=== PATIENT | female | born 1945 | race American Indian/Alaskan Native ===

== ENCOUNTER 2016-03-26 13:07 | Emergency (ER) | payer MEDICARE ==
--- NOTE | 2016-03-26 14:46 | Emergency Department Report ---
Chief Complaint: Abdominal Pain Stated Complaint: MUSCLE SPASMS/NECK Time Seen by Provider: 03/26/16 14:39 - HPI History of Present Illness: 70-year-old female comes in for complaint of left-sided pain left side flank pain as well as right neck muscle spasms. Patient has a past medical history of hypertension and GERD. Patient denies any vomiting denies dysuria denies hematuria. - Exam Vital Signs: Vital Signs 03/26/16 13:57 Temperature 99.0 F Pulse Rate 99 H Respiratory 16 Rate Blood Pressure 146/96 O2 Sat by Pulse 98 Oximetry Physical Exam: Patient is alert and oriented. Her symptoms aren't as the right side of her neck as well as tenderness to palpate any CVA tenderness on the left flank. MSE screening note: Focused history and physical exam performed. Due to findings the following was ordered: Patient is been evaluated by provider in MSE. We will order a CBC CMP and a UA. Patient be evaluated in the main ER by the physicians. ED Disposition for [facility] Condition: Stable Instructions: Abdominal Pain (ED)
[2016-03-26 15:31] LABS: Hemoglobin 13.8 gm/dl (10.1-14.3); Mean Corpuscular HGB Conc 34 % (30-34); Mean Corpuscular Hemoglobin 29 pg (28-32); Mean Corpuscular Volume 88 fl (79-97); Platelet Count 230 K/mm3 (140-440); Red Blood Count 4.68 M/mm3 (3.65-5.03); Red Cell Distribution Width 13.3 % (13.2-15.2); White Blood Count 9.1 K/mm3 (4.5-11.0)
[2016-03-26 15:57] LABS: Alanine Aminotransferase 11 units/L (7-56); Albumin 3.9 g/dL (3.9-5); Albumin/Globulin Ratio 1.1 %; Alkaline Phosphatase 136 units/L (35-129); Bilirubin,Total 0.4 mg/dL (0.1-1.2); Blood Urea Nitrogen 7 mg/dL (7-17); Calcium 9.9 mg/dL (8.4-10.2); Carbon Dioxide 28 mmol/L (22-30); Chloride 94.4 mmol/L (98-107); Glucose 91 mg/dL (65-100); Potassium 3.6 mmol/L (3.6-5.0); Sodium 137 mmol/L (137-145); Total Protein 7.6 g/dL (6.3-8.2)
[2016-03-26 16:03] LABS: Anion Gap 18 mmol/L
[2016-03-26 16:15] LABS: Bilirubin,Urine NEG (Negative); Blood,Urine NEG (Negative); Ketones,Urine TR mg/dL (Negative); Leukocyte Esterase,Urine NEG (Negative); Nitrite,Urine NEG (Negative); Urobilinogen,Urine < 2.0 mg/dL (<2.0)
--- NOTE | 2016-03-26 23:07 | Cat Scan Report ---
FINAL REPORT PROCEDURE: CT HEAD/BRAIN WO CON TECHNIQUE: Computerized tomography of the head was performed without contrast material. HISTORY: neck pain/headpain COMPARISON: No prior studies are available for comparison. FINDINGS: Skull and scalp: Normal. Paranasal sinuses: Normal. Ventricles and subarachnoid spaces: There is mild central and cortical atrophy. There is no hydrocephalus or asymmetry.. Cerebrum: No evidence of hemorrhage, acute infarction or mass. There is chronic deep white matter ischemic gliosis. Cerebellum and brainstem: No evidence of hemorrhage, acute infarction or mass. Vasculature: There are calcified plaque in the cavernous portions of the internal carotid arteries.. Comments: None. IMPRESSION: There is mild central and cortical atrophy. There is no hydrocephalus or asymmetry.. There is no evidence of hemorrhage, acute infarction or mass. There is chronic deep white matter ischemic gliosis.
[2016-03-26] MEDS ORDERED: NACL 0.9% 1000 ML 1,000 ML IV ONE (23:41)
[2016-03-26] MEDS ORDERED: VALIUM IV ONE (23:41)
--- NOTE | 2016-03-27 00:05 | Emergency Department Report ---
HPI - General Chief Complaint: Abdominal Pain Time Seen by Provider: 03/26/16 14:39 - HPI HPI: This is a 70-year-old Afro[place] female who presents to the emergency Department, after driving herself and from home, with 2 main complaints. For the past 4 days the patient has had a pain to the right side of the shoulder, neck and into the back of her head. It feels like a muscle spasm to her and worsens with certain movements of her head and neck. The other complaint is a pain to the left lower lateral back that radiates down into her buttock. This also worsens with certain movements of her body. She denies any problems with bowel or bladder, numbness or paresthesias or any neurological deficits. Patient has tried some Tylenol for her symptoms without any relief. She denies any dysuria, hematuria, vaginal discharge or bleeding. She has a past nuchal history of hypertension and GERD. She does not currently have a primary care doctor. No recent travel or sick contacts at home. ED Past Medical Hx - Past Medical History Hx Hypertension: Yes Hx Psychiatric Treatment: Yes (depression) - Surgical History Additional Surgical History: hysterectomy - Social History Smoking Status: Current Every Day Smoker Substance Use Type: None - Medications Home Medications: Home Medications Medication Instructions Recorded Confirmed Last Taken Type Ketorolac [Toradol] 10 mg PO Q6H PRN #20 tablet 02/01/16 Unknown Rx Diazepam Tab [Valium] 2 mg PO TID PRN #12 tablet 03/27/16 Unknown Rx predniSONE [Deltasone] 20 mg PO QDAY #5 tab 03/27/16 Unknown Rx ED Review of Systems ROS: Stated complaint: MUSCLE SPASMS/NECK Other details as noted in HPI Comment: All other systems reviewed and negative Constitutional: denies: chills, fever Eyes: denies: eye pain, eye discharge, vision change ENT: denies: ear pain, throat pain Respiratory: denies: cough, shortness of breath, wheezing Cardiovascular: denies: chest pain, palpitations Gastrointestinal: denies: abdominal pain, nausea, diarrhea Genitourinary: denies: urgency, dysuria, discharge Musculoskeletal: back pain, myalgia Skin: denies: rash, lesions Neurological: headache. denies: weakness, numbness, paresthesias Physical Exam - Physical Exam Vital Signs: Vital Signs 03/26/16 03/26/16 13:57 21:21 Temperature 99.0 F 98.7 F Pulse Rate 99 H 103 H Respiratory 16 20 Rate Blood Pressure 146/96 Blood Pressure 159/92 [Left] O2 Sat by Pulse 98 100 Oximetry Physical Exam: GENERAL: The patient is well-developed well-nourished. HEENT: Normocephalic. Atraumatic. Extraocular motions are intact. Patient has moist mucous membranes. Pupils equal reactive to light bilaterally. NECK: Supple. No midline tenderness to palpation or deformity. Patient does have reducible tenderness to palpation to the right paraspinal region that runs down along the superior and posterior shoulder consistent with the trapezius muscle. Patient is able to slowly turn her head in all directions but movement does seem to exacerbate her discomfort. CHEST/LUNGS: Clear to auscultation. There is no respiratory distress noted. HEART/CARDIOVASCULAR: Regular. There is no tachycardia. There is no gallop rub or murmur. ABDOMEN: Abdomen is soft, nontender. Patient has normal bowel sounds. There is no abdominal distention. SKIN: There is no rash. There is no edema. There is no diaphoresis. NEURO: The patient is awake, alert, and oriented. The patient is cooperative. The patient has no focal neurologic deficits. The patient has normal speech and gait. Cranial nerves II through XII grossly intact. MUSCULOSKELETAL: There is no tenderness or deformity. There is no limitation range of motion. There is no evidence of acute injury. Muscle strength 5 out of 5 upper and lower extremities including EHL bilaterally. BACK: No midline thoracic or lumbar tenderness to palpation or deformity. She has some reproducible tenderness to palpation to the left lumbar paraspinal region. Positive left lower extremity straight leg raise test. ED Course Vital Signs 03/26/16 03/26/16 13:57 21:21 Temperature 99.0 F 98.7 F Pulse Rate 99 H 103 H Respiratory 16 20 Rate Blood Pressure 146/96 Blood Pressure 159/92 [Left] O2 Sat by Pulse 98 100 Oximetry ED Medical Decision Making - Lab Data Result diagrams: 03/26/16 15:22 03/26/16 15:22 - Radiology Data Radiology results: report reviewed CT of the head does not show any acute process including no evidence of hemorrhage, infarction or mass. Chronic deep white matter ischemic gliosis. Mild central and cortical atrophy. No hydrocephalus or asymmetry. - Medical Decision Making This is a 70-year-old female who presents to the emergency department with a four-day history of some right-sided neck and shoulder discomfort, like a muscle spasm or crick in the neck. Over the same time she also has some pain to the left lumbar region going down into the buttock. Patient had a CT of the head through triage because she complained that the neck and shoulder pain was going into the head but it was negative for any acute process including bleed, shift, mass. Patient's pain to the neck and shoulders reproducible to palpation , as was the left lower back pain. All of which appeared to be musculoskeletal in nature. Patient did not have any focal, motor or sensory deficits. She was seen with full muscle strength all 4 extremities. No focal, motor or sensory deficits. Patient was seen ambulatory in the emergency department and appeared stable and doing so. She was given some IV fluid, antinausea inflammatory steroids and a muscle relaxer. Patient was feeling better when she was asking for discharge home and she has to attend to her son who has multiple sclerosis. Patient got a ride secondary to the fact that the Valium is sedating. Patient was given a small amount of muscle relaxers and steroids to be used at home. We discussed a heating pad or hot bath. She will follow up with primary care and will return to the ER with any worsening of her symptoms or any acute distress. Vital signs stable throughout her ED course. - Differential Diagnosis muscle spasm, tension headache, brain bleed, muscle strain Critical Care Time: No Critical care attestation.: If time is entered above; I have spent that time in minutes in the direct care of this critically ill patient, excluding procedure time. ED Disposition Clinical Impression: Neck pain, Trapezius muscle spasm Sciatica Qualifiers: Laterality: right Qualified Code(s): M54.31 - Sciatica, right side Back pain Qualifiers: Back pain location: low back pain Chronicity: acute Back pain laterality: left Sciatica presence: with sciatica Sciatica laterality: sciatica of right side Qualified Code(s): M54.41 - Lumbago with sciatica, right side Hypertension Qualifiers: Hypertension type: essential hypertension Qualified Code(s): I10 - Essential ( primary) hypertension Disposition: DISCHARGED TO HOME OR SELFCARE Is pt being admited?: No Does the pt Need Aspirin: No Condition: Stable Instructions: Back Pain (ED), Sciatica (ED), Muscle Spasm (ED), Hypertension ( ED) Additional Instructions: Please follow up with one of the primary care doctor's that you have been given a referral to. Return to the emergency department with any worsening of your symptoms or any acute distress, especially a few develop any vision change, slurred speech, chest pain. You can try a heating pad or a hot bath to try and loosen up the muscles. You've been prescribed a medication that is sedating. Therefore this medication cannot be mixed with alcohol, or taken prior to driving, working, or being responsible for children. Prescriptions: predniSONE [Deltasone] 20 mg PO QDAY #5 tab Diazepam Tab [Valium] 2 mg PO TID PRN #12 tablet PRN Reason: Muscle Spasm Referrals: PRIMARY CARE, [Primary Care Provider] - 3-5 Days ALIREZA DEL VALLE MD [Staff Physician] - 3-5 Days MARTHA PELLETIER MD [Staff Physician] - 3-5 Days JOY VENTURA MD [Staff Physician] - 3-5 Days Time of Disposition: 01:10
--- NOTE | 2016-03-27 00:26 | Admit Criteria Form ---
Admission Criteria Documentation: ABDOMINAL PAIN: OBSERVATION CARE USE THIS FORM ONLY WHEN INPATIENT ADMISSION CRITERIA ARE NOT MET. (Place X for any and all applicable criteria): Placement for observation care is indicated for a patient with ANY ONE of the following(1)(2)(3)(4)(5))(6): []I. Suspected condition requiring continued monitoring (e.g., ectopic , appendicitis) [A] []II. Undiagnosed pain after evaluation and initial treatment with ANY ONE of the following: []a) Continued pain unrelieved by symptomatic treatment []b) Patient unable to maintain hydration status []c) Concerning finding on examination (e.g., increasing tenderness, focal abdominal finding) or diagnostic testing (e.g., air fluid level on x-ray) []III. A child whose situation includes ANY ONE of the following: []a) Clinical response to outpatient therapy uncertain []b) Outpatient supervision by parents or caregivers uncertain [X]IV. Other observation care needs. (Also use General Criteria: Observation Care). The original [facility] content created by [facility] has been revised. The portions of the content which have been revised are identified through the use of italic text, and [facility] has neither reviewed nor approved the modified material. All other unmodified content is copyright [facility] [employer]. Please see references footnoted in the original [facility] edition 2015 Admission Criteria Met: Pending
[2016-03-27 03:29] VITALS: BP 152/87
== END 2016-03-27 01:16 | disposition home or self-care (01) ==
LOC: ED 13:07
DX: M54.31 Sciatica, right side (principal); M54.2 Cervicalgia; M54.41 Lumbago with sciatica, right side; M25.511 Pain in right shoulder; I10 Essential (primary) hypertension; F32.9 Major depressive disorder, single episode, unspecified; F17.200 Nicotine dependence, unspecified, uncomplicated
CPT/HCPCS: 36415; 70450; 80053; 81001; 85027; 93005; 93010; 96361; 96374; 96375; 99284; J2930; J3360; J7030

== ENCOUNTER 2017-07-18 11:26 | Emergency (ER) | payer MEDICARE ==
[2017-07-18 11:39] VITALS: BP 160/101
--- NOTE | 2017-07-18 13:08 | Emergency Department Report ---
HPI - General Chief Complaint: Medical Clearance Time Seen by Provider: 07/18/17 12:55 - HPI HPI: 72-year-old female presents to the emergency department with complaint of needing a refill of her Prozac medication. The patient has a history of depression and anxiety for which she used to be on Prozac. However 2 months ago, as the patient was running out of her medication, she felt that she was stabilized and was "finally myself." For this reason she decided to stop taking that medication. However shortly after stopping the medication, the patient began having a return of depression and anxiety. She denies any auditory or visual hallucinations or any suicidal or homicidal ideations. She does not currently have a psychiatrist or psychologist. She has a primary care physician through [facility]. Patient has a secondary complaint of right upper lateral back spasm and/or discomfort that she says occurred after she was lifting heavy garbage outside of her home 2 nights ago. She denies any numbness or paresthesias anywhere, problems with bowel or bladder, or any neurological deficits. She has not taken anything for this prior to presentation. She does have a past medical history of hypertension. ED Past Medical Hx - Past Medical History Hx Hypertension: Yes Hx Psychiatric Treatment: Yes (depression) - Surgical History Additional Surgical History: hysterectomy - Social History Smoking Status: Current Every Day Smoker Substance Use Type: None - Medications Home Medications: Home Medications Medication Instructions Recorded Confirmed Last Taken Type Ketorolac [Toradol] 10 mg PO Q6H PRN #20 tablet 02/01/16 Unknown Rx Diazepam Tab [Valium] 2 mg PO TID PRN #12 tablet 03/27/16 Unknown Rx predniSONE [Deltasone] 20 mg PO QDAY #5 tab 03/27/16 Unknown Rx Diazepam Tab [Valium] 2 mg PO TID PRN #12 tablet 07/18/17 Unknown Rx FLUoxetine [PROzac] 20 mg PO QDAY #40 tablet 07/18/17 Unknown Rx ED Review of Systems ROS: Stated complaint: ANXIETY Other details as noted in HPI Comment: All other systems reviewed and negative Constitutional: denies: chills, fever Eyes: denies: eye pain, eye discharge, vision change ENT: denies: ear pain, throat pain Respiratory: denies: cough, shortness of breath, wheezing Cardiovascular: denies: chest pain, palpitations Gastrointestinal: denies: abdominal pain, nausea, diarrhea Genitourinary: denies: urgency, dysuria, discharge Musculoskeletal: back pain. denies: arthralgia Skin: denies: rash, lesions Neurological: denies: headache, weakness, paresthesias Psychiatric: anxiety, depression. denies: auditory hallucinations, visual hallucinations, homicidal thoughts, suicidal thoughts Physical Exam - Physical Exam Vital Signs: Vital Signs 07/18/17 11:36 Temperature 99 F Pulse Rate 96 H Respiratory 20 Rate Blood Pressure 160/101 O2 Sat by Pulse 99 Oximetry Physical Exam: GENERAL: The patient is well-developed well-nourished. HENT: Normocephalic. Atraumatic. Patient has moist mucous membranes. EYES: Extraocular motions are intact. Pupils equal reactive to light bilaterally. NECK: Supple. Trachea is midline. CHEST/LUNGS: Clear to auscultation. There is no respiratory distress noted. HEART/CARDIOVASCULAR: Regular. There is no tachycardia. There is no murmur. ABDOMEN: Abdomen is soft, nontender. Patient has normal bowel sounds. There is no abdominal distention. SKIN: Skin is warm and dry. NEURO: The patient is awake, alert, and oriented. The patient is cooperative. The patient has no focal neurologic deficits. The patient has normal speech. MUSCULOSKELETAL: There is no tenderness or deformity. There is no evidence of acute injury. PSYCH: She is slightly tearful but otherwise calm and appropriate. ED Course Vital Signs 07/18/17 11:36 Temperature 99 F Pulse Rate 96 H Respiratory 20 Rate Blood Pressure 160/101 O2 Sat by Pulse 99 Oximetry ED Medical Decision Making - Medical Decision Making Patient appears to have a 2 month history of some depression and anxiety since she stopped her Prozac. She does not have any hallucinations, suicidal or homicidal ideations. She does not appear to be a candidate to be made a 1013. I will restart her on her Prozac and she will be given outpatient psychiatric referrals. She has been instructed to return to the emergency Department with any worsening of her symptoms or any acute distress. - Differential Diagnosis depression, anxiety, bipolar disorder Critical Care Time: No Critical care attestation.: If time is entered above; I have spent that time in minutes in the direct care of this critically ill patient, excluding procedure time. ED Disposition Clinical Impression: Anxiety, Back pain Depression Qualifiers: Depression Type: unspecified Qualified Code(s): F32.9 - Major depressive disorder, single episode, unspecified Disposition: DC-01 TO HOME OR SELFCARE Is pt being admited?: No Condition: Stable Instructions: Depression (ED), Back Pain (ED), Anxiety (ED) Additional Instructions: Please follow-up with your primary care physician in the next few days. I have given him multiple referrals for some psychologists in the area to follow up regarding your depression and/or anxiety. Please start taking the Prozac as prescribed. Return to the emergency department with any worsening of your symptoms or any acute distress. I have written you for a small amount of muscle relaxer medication for your back. You have been prescribed a medication that is sedating and therefore should not be taken prior to driving, working, and responsible for children and in no way should be mixed with alcohol of any quantity. Prescriptions: Diazepam Tab [Valium] 2 mg PO TID PRN #12 tablet PRN Reason: Muscle Spasm FLUoxetine [PROzac] 20 mg PO QDAY #40 tablet Referrals: PRIMARY CARE, [Primary Care Provider] - 3-5 Days XU GUERRIER MD [Staff Physician] - 3-5 Days Time of Disposition: 13:11
== END 2017-07-18 13:20 | disposition home or self-care (01) ==
LOC: ED 11:26
DX: F41.9 Anxiety disorder, unspecified (principal); F32.9 Major depressive disorder, single episode, unspecified; M62.830 Muscle spasm of back; I10 Essential (primary) hypertension; F17.200 Nicotine dependence, unspecified, uncomplicated
CPT/HCPCS: 99281

== ENCOUNTER 2018-05-10 12:33 | Emergency (ER) | payer MEDICARE ==
--- NOTE | 2018-05-10 12:41 | Emergency Department Report ---
Blank Doc - Documentation Documentation: This is a 73-year-old female that presents with right hip pain and abdominal p ain with n/v. Stated is out of her GERD medications and HTN. Stated has symptoms of GERD. Stated fell 3 days ago and landed right hip pain. Denies any other complaints or symptoms. This initial assessment diagnostic orders/clinical plan/treatment(s) is/are subject to change based on patient's health status, clinical progression and re- assessment by fellow clinical providers in the ED. Further treatment and workup at subsequent clinical providers discretion. Patient/guardians urged not to elope from ED s their condition may be serious if not clinically assessed and managed. Initial orders include: 1-Patient sent to MAIN ED for further evaluation and treatment 2- Labs 3- Xray 4- UA
[2018-05-10 12:44] VITALS: BP 143/88
[2018-05-10] MEDS ORDERED: ALUM-MAG HYDROX-SIMETH 200-200-20MG/5ML PO ONE (12:57)
[2018-05-10 13:00] LABS: Basophils % (Auto) 0.8 % (0.0-1.8); Eosinophils % (Auto) 0.7 % (0.0-4.3); Hematocrit 39.4 % (30.3-42.9); Hemoglobin 13.4 gm/dl (10.1-14.3); Lymphocytes # (Auto) 1.2 K/mm3 (1.2-5.4); Lymphocytes % (Auto) 24.8 % (13.4-35.0); Mean Corpuscular HGB Conc 34 % (30-34); Mean Corpuscular Volume 92 fl (79-97); Monocytes # (Auto) 0.4 K/mm3 (0.0-0.8); Monocytes % (Auto) 8.5 % (0.0-7.3); Platelet Count 206 K/mm3 (140-440); Red Cell Distribution Width 13.3 % (13.2-15.2)
--- NOTE | 2018-05-10 13:02 | Emergency Department Report ---
ED Recheck HPI - General Chief Complaint: Abdominal Pain Stated Complaint: BLOOD PRESSURE MEDS/ACID REFLUX Time Seen by Provider: 05/10/18 12:39 Source: patient Mode of arrival: Ambulatory Limitations: No Limitations - History of Present Illness Initial Comments: needs meds refilled nexium norvasc lisinopril remeron reports abd cramps, diarrhea since being out of nexium R hip pain due to mechanical fall denies all other complaints MD Complaint: medication refill request -: Gradual, days(s) (2) Symptoms Since Prior Visit: worsening pain Associated Symptoms: abdominal pain. denies: chest pain - Related Data Previous Rx's Medication Instructions Recorded Last Taken Type Ketorolac [Toradol] 10 mg PO Q6H PRN #20 tablet 02/01/16 Unknown Rx diazePAM TAB [Valium] 2 mg PO TID PRN #12 tablet 03/27/16 Unknown Rx predniSONE [Deltasone] 20 mg PO QDAY #5 tab 03/27/16 Unknown Rx FLUoxetine [PROzac] 20 mg PO QDAY #40 tablet 07/18/17 Unknown Rx diazePAM TAB [Valium] 2 mg PO TID PRN #12 tablet 07/18/17 Unknown Rx Esomeprazole Magnesium [Nexium] 40 mg PO DAILY #30 capsule.dr 05/10/18 Unknown Rx Lisinopril [Zestril] 40 mg PO DAILY #30 tablet 05/10/18 Unknown Rx Mirtazapine [Remeron] 45 mg PO HS #30 tab.rapdis 05/10/18 Unknown Rx amLODIPine [Norvasc] 10 mg PO DAILY #30 tab 05/10/18 Unknown Rx Allergies Allergy/AdvReac Type Severity Reaction Status Date / Time ibuprofen [From Motrin] Allergy Rash Verified 07/18/17 11:36 shrimp Allergy Unknown Verified 07/18/17 11:36 tetracycline Allergy Unknown Verified 07/18/17 11:36 ED Review of Systems ROS: Stated complaint: BLOOD PRESSURE MEDS/ACID REFLUX Other details as noted in HPI Comment: All other systems reviewed and negative Gastrointestinal: abdominal pain, diarrhea ED Past Medical Hx - Past Medical History Previous Medical History?: Yes Hx Hypertension: Yes Hx GERD: Yes Hx Psychiatric Treatment: Yes (depression) - Surgical History Past Surgical History?: Yes Additional Surgical History: hysterectomy, cervical lami - Social History Smoking Status: Current Every Day Smoker Substance Use Type: Alcohol - Medications Home Medications: Home Medications Medication Instructions Recorded Confirmed Last Taken Type Ketorolac [Toradol] 10 mg PO Q6H PRN #20 tablet 02/01/16 Unknown Rx diazePAM TAB [Valium] 2 mg PO TID PRN #12 tablet 03/27/16 Unknown Rx predniSONE [Deltasone] 20 mg PO QDAY #5 tab 03/27/16 Unknown Rx FLUoxetine [PROzac] 20 mg PO QDAY #40 tablet 07/18/17 Unknown Rx diazePAM TAB [Valium] 2 mg PO TID PRN #12 tablet 07/18/17 Unknown Rx Esomeprazole Magnesium [Nexium] 40 mg PO DAILY #30 capsule.dr 05/10/18 Unknown Rx Lisinopril [Zestril] 40 mg PO DAILY #30 tablet 05/10/18 Unknown Rx Mirtazapine [Remeron] 45 mg PO HS #30 tab.rapdis 05/10/18 Unknown Rx amLODIPine [Norvasc] 10 mg PO DAILY #30 tab 05/10/18 Unknown Rx ED Physical Exam - General Limitations: No Limitations General appearance: alert, in no apparent distress - Head Head exam: Present: atraumatic, normocephalic - Eye Eye exam: Present: normal appearance - ENT ENT exam: Present: mucous membranes moist - Neck Neck exam: Present: normal inspection - Respiratory Respiratory exam: Present: normal lung sounds bilaterally. Absent: respiratory distress - Cardiovascular Cardiovascular Exam: Present: regular rate, normal rhythm. Absent: systolic murmur, diastolic murmur, rubs, gallop - GI/Abdominal GI/Abdominal exam: Present: soft, normal bowel sounds. Absent: distended, tenderness, guarding, rebound - Extremities Exam Extremities exam: Present: normal inspection, full ROM, tenderness (R hip), normal capillary refill. Absent: pedal edema, calf tenderness - Back Exam Back exam: Present: normal inspection - Neurological Exam Neurological exam: Present: alert, oriented X3 - Psychiatric Psychiatric exam: Present: normal affect, normal mood - Skin Skin exam: Present: warm, dry, intact, normal color. Absent: rash ED Course Vital Signs 05/10/18 12:39 Temperature 98.2 F Pulse Rate 94 H Respiratory 20 Rate Blood Pressure 143/88 [Right] O2 Sat by Pulse 99 Oximetry ED Recheck MDM - Differential Diagnosis Prescription Refill(s) - Medical Decision Making abd cramping and diarrhea out of Nexium benign abdomen on exam no concern for surgical/emergent process given maalox xray of hip shows OA, otherwise unremarkable will refill meds and advise fu pcp Critical care attestation.: If time is entered above; I have spent that time in minutes in the direct care of this critically ill patient, excluding procedure time. ED Disposition Clinical Impression: Medication refill, Abdominal cramping Contusion of hip, right Qualifiers: Encounter type: initial encounter Qualified Code(s): S70.01XA - Contusion of right hip, initial encounter Disposition: TO HOME OR SELFCARE Is pt being admited?: No Condition: Good Instructions: Abdominal Pain (ED) Prescriptions: amLODIPine [Norvasc] 10 mg PO DAILY #30 tab Esomeprazole Magnesium [Nexium] 40 mg PO DAILY #30 capsule. Lisinopril [Zestril] 40 mg PO DAILY #30 tablet Mirtazapine [Remeron] 45 mg PO HS #30 tab.gwendolyn Referrals: TAVIA COLIN MD [Primary Care Provider] - 3-5 Days Time of Disposition: 14:07
[2018-05-10 13:15] LABS: Alanine Aminotransferase 22 units/L (7-56); Albumin 3.6 g/dL (3.9-5); BUN/Creatinine Ratio 18; Blood Urea Nitrogen 11 mg/dL (7-17); Calcium 9.6 mg/dL (8.4-10.2); Hemolysis Index 24
[2018-05-10 13:52] LABS: Bilirubin,Urine NEG (Negative); Blood,Urine NEG (Negative); Color,Urine Amber (Yellow); Hyaline Casts,Urine 1 /LPF; Mucus,Urine FEW /HPF
--- NOTE | 2018-05-10 14:02 | XRay Report ---
FINAL REPORT EXAM: XR HIP 2-3V RT HISTORY: right hip pain TECHNIQUE: AP pelvis radiograph. Frog-leg radiograph of the right hip. PRIORS: None. FINDINGS: No fracture. No dislocation. Normal mineralization. No soft tissue abnormality. There is moderate bilateral hip joint space loss and peripheral osteophyte formations. IMPRESSION: Moderate osteoarthritis of the hips.
== END 2018-05-10 14:13 | disposition home or self-care (01) ==
LOC: ED 12:33
DX: S70.01XA Contusion of right hip, initial encounter (principal); R10.9 Unspecified abdominal pain; R19.7 Diarrhea, unspecified; I10 Essential (primary) hypertension; K21.9 Gastro-esophageal reflux disease without esophagitis; F32.9 Major depressive disorder, single episode, unspecified; F17.200 Nicotine dependence, unspecified, uncomplicated; Z90.710 Acquired absence of both cervix and uterus; Z88.1 Allergy status to other antibiotic agents; Z88.6 Allergy status to analgesic agent; Z91.013 Allergy to seafood; Z79.899 Other long term (current) drug therapy; X58.XXXA Exposure to other specified factors, initial encounter; Y93.89 Activity, other specified; Y92.89 Other specified places as the place of occurrence of the external cause; Y99.8 Other external cause status
CPT/HCPCS: 36415; 80053; 81001; 83690; 85025

== ENCOUNTER 2018-05-12 12:43 | Emergency (ER) | payer MEDICARE ==
[2018-05-12] MEDS ORDERED: NORCO 5/325 PO STA (18:17)
--- NOTE | 2018-05-12 18:21 | Emergency Department Report ---
ED General Adult HPI - General Chief complaint: Back Pain/Injury Stated complaint: LOWER BACK (R) SIDE PAIN Time Seen by Provider: 05/12/18 17:39 Source: patient Mode of arrival: Ambulatory Limitations: No Limitations - History of Present Illness Initial comments: 73-year-old [place] female presents emergency department complaining continued pain to her right hip following a fall a couple days ago. She landed on the corner step on her right side after tripping. She was initially seen and evaluated this emergency department mid level amira was she was diagnosed with a hip contusion. Patient states she didn't receive any analgesia medication and returns to the to the ER requesting some some type of pain control. She denies any reinjury. She denies any new symptoms. Pain is dull, throbbing, worse with palpation and prolonged standing. States she was having some trouble caring for her kids at home due to the pain. Consistency: constant Improves with: none Worsens with: none Associated Symptoms: denies: confusion, chest pain, diaphoresis, fever/chills, loss of appetite, malaise, nausea/vomiting, shortness of breath Treatments Prior to Arrival: none - Related Data Previous Rx's Medication Instructions Recorded Last Taken Type Ketorolac [Toradol] 10 mg PO Q6H PRN #20 tablet 02/01/16 Unknown Rx diazePAM TAB [Valium] 2 mg PO TID PRN #12 tablet 03/27/16 Unknown Rx predniSONE [Deltasone] 20 mg PO QDAY #5 tab 03/27/16 Unknown Rx FLUoxetine [PROzac] 20 mg PO QDAY #40 tablet 07/18/17 Unknown Rx diazePAM TAB [Valium] 2 mg PO TID PRN #12 tablet 07/18/17 Unknown Rx Esomeprazole Magnesium [Nexium] 40 mg PO DAILY #30 capsule. 05/10/18 Unknown Rx Lisinopril [Zestril] 40 mg PO DAILY #30 tablet 05/10/18 Unknown Rx Mirtazapine [Remeron] 45 mg PO HS #30 tab.rapdis 05/10/18 Unknown Rx amLODIPine [Norvasc] 10 mg PO DAILY #30 tab 05/10/18 Unknown Rx traMADol [Ultram] 50 mg PO Q6HR PRN #12 tablet 05/12/18 Unknown Rx Allergies Allergy/AdvReac Type Severity Reaction Status Date / Time ibuprofen [From Motrin] Allergy Rash Verified 05/12/18 12:44 shrimp Allergy Unknown Verified 05/12/18 12:44 tetracycline Allergy Unknown Verified 05/12/18 12:44 ED Review of Systems ROS: Stated complaint: LOWER BACK (R) SIDE PAIN Other details as noted in HPI Constitutional: denies: chills, fever Eyes: denies: eye pain, eye discharge, vision change ENT: denies: ear pain, throat pain Respiratory: denies: cough, shortness of breath, wheezing Cardiovascular: denies: chest pain, palpitations Endocrine: no symptoms reported Gastrointestinal: denies: abdominal pain, nausea, diarrhea Genitourinary: denies: urgency, dysuria, discharge Musculoskeletal: denies: back pain, joint swelling, arthralgia Skin: denies: rash, lesions Neurological: denies: headache, weakness, paresthesias Psychiatric: denies: anxiety, depression Hematological/Lymphatic: denies: easy bleeding, easy bruising ED Past Medical Hx - Past Medical History Hx Hypertension: Yes Hx GERD: Yes Hx Psychiatric Treatment: Yes (depression) - Surgical History Additional Surgical History: hysterectomy, cervical lami - Social History Smoking Status: Current Every Day Smoker Substance Use Type: None - Medications Home Medications: Home Medications Medication Instructions Recorded Confirmed Last Taken Type Ketorolac [Toradol] 10 mg PO Q6H PRN #20 tablet 02/01/16 Unknown Rx diazePAM TAB [Valium] 2 mg PO TID PRN #12 tablet 03/27/16 Unknown Rx predniSONE [Deltasone] 20 mg PO QDAY #5 tab 03/27/16 Unknown Rx FLUoxetine [PROzac] 20 mg PO QDAY #40 tablet 07/18/17 Unknown Rx diazePAM TAB [Valium] 2 mg PO TID PRN #12 tablet 07/18/17 Unknown Rx Esomeprazole Magnesium [Nexium] 40 mg PO DAILY #30 capsule.dr 05/10/18 Unknown Rx Lisinopril [Zestril] 40 mg PO DAILY #30 tablet 05/10/18 Unknown Rx Mirtazapine [Remeron] 45 mg PO HS #30 tab.rapdis 05/10/18 Unknown Rx amLODIPine [Norvasc] 10 mg PO DAILY #30 tab 05/10/18 Unknown Rx traMADol [Ultram] 50 mg PO Q6HR PRN #12 tablet 05/12/18 Unknown Rx ED Physical Exam - General Limitations: No Limitations General appearance: alert, in no apparent distress - Head Head exam: Present: atraumatic, normocephalic - Eye Eye exam: Present: normal appearance - ENT ENT exam: Present: mucous membranes moist - Neck Neck exam: Present: normal inspection - Respiratory Respiratory exam: Present: normal lung sounds bilaterally. Absent: respiratory distress - Cardiovascular Cardiovascular Exam: Present: regular rate, normal rhythm. Absent: systolic murmur, diastolic murmur, rubs, gallop - GI/Abdominal GI/Abdominal exam: Present: soft, normal bowel sounds - Extremities Exam Extremities exam: Present: normal inspection - Expanded Lower Extremity Exam Right Hip exam: Present: full ROM, tenderness. Absent: swelling, abrasion, ecchymosis, deformity, crepidus, dislocation, erythema, external rotation, internal rotation, shortening Knee exam: Present: normal inspection, full ROM Lower Leg exam: Present: normal inspection, full ROM. Absent: palpable cord, Gia's sign Foot/Toe exam: Present: normal inspection, full ROM - Back Exam Back exam: Present: normal inspection - Neurological Exam Neurological exam: Present: alert, oriented X3 - Psychiatric Psychiatric exam: Present: normal affect, normal mood - Skin Skin exam: Present: warm, dry, intact, normal color. Absent: rash ED Course Vital Signs 05/12/18 12:44 Temperature 98.4 F Pulse Rate 89 Respiratory 18 Rate Blood Pressure 133/88 O2 Sat by Pulse 98 Oximetry Critical care attestation.: If time is entered above; I have spent that time in minutes in the direct care of this critically ill patient, excluding procedure time. ED Disposition Clinical Impression: Contusion of hip, right Disposition: DC-01 TO HOME OR SELFCARE Is pt being admited?: No Does the pt Need Aspirin: No Condition: Stable Instructions: Ice Pack Application (ED), Contusion in Adults (ED) Prescriptions: traMADol [Ultram] 50 mg PO Q6HR PRN #12 tablet PRN Reason: Pain Referrals: JOYCE GUSMAN MD [Primary Care Provider] - 3-5 Days YESENIA GILLESPIE MD [Staff Physician] - 3-5 Days
[2018-05-12 18:52] VITALS: BP 126/84
== END 2018-05-12 18:48 | disposition home or self-care (01) ==
LOC: ED 12:43
DX: S70.01XA Contusion of right hip, initial encounter (principal); I10 Essential (primary) hypertension; K21.9 Gastro-esophageal reflux disease without esophagitis; F32.9 Major depressive disorder, single episode, unspecified; F17.200 Nicotine dependence, unspecified, uncomplicated; Z90.710 Acquired absence of both cervix and uterus; Z88.5 Allergy status to narcotic agent; Z88.1 Allergy status to other antibiotic agents; Z91.013 Allergy to seafood; W18.39XA Other fall on same level, initial encounter; Y93.89 Activity, other specified; Y92.89 Other specified places as the place of occurrence of the external cause; Y99.8 Other external cause status
CPT/HCPCS: 99282

== ENCOUNTER 2018-07-23 11:26 | Emergency (ER) | payer MEDICARE ==
--- NOTE | 2018-07-23 11:40 | Emergency Department Report ---
Blank Doc - Documentation Documentation: This is a 73-year-old female that presents with chronic lower back pain x2 yea rs. Stated was sent to get an xray today but could not find the xray place. Denies any chest pain or abdominal pain. This initial assessment/diagnostic orders/clinical plan/treatment(s) is/are subj ect to change based on patient's health status, clinical progression and re- assessment by fellow clinical providers in the ED. Further treatment and workup at subsequent clinical providers discretion. Patient/guardians urged not to elope from the ED as their condition may be serious if not clinically assessed and managed. Initial orders include: 1- Patient sent to [facility] for further evaluation and treatment 2- XR spine
[2018-07-23 12:16] VITALS: BP 128/89
--- NOTE | 2018-07-23 14:10 | XRay Report ---
LUMBAR SPINE RADIOGRAPHS INDICATION: Low back strain. COMPARISON: None similar. FINDINGS: AP and lateral lumbar spine radiographs demonstrate normal vertebral body stature. A transitional lumbosacral vertebra possible with advanced disc degeneration/adjacent sclerosis/heterogeneity. Multilevel lower lumbar lumbar facet arthropathy and some disc degeneration also suspected. Approximately 3 mm lower lumbar/lumbosacral spondylolisthesis may also be seen on the lateral view. Possible osteopenia. Mild multilevel lower thoracic spine degenerative changes. Mild left SI joint degenerative changes. Nonobstructive bowel gas pattern. Clear imaged lung bases. CONCLUSION: Multilevel spinal degenerative changes, greatest lower lumbar, as detailed above. Please correlate. Thank you for the opportunity to participate in this patient's care.
--- NOTE | 2018-07-23 15:10 | Emergency Department Report ---
ED Back Pain/Injury HPI - General Chief Complaint: Back Pain/Injury Stated Complaint: LOWER BACK PAIN Time Seen by Provider: 07/23/18 11:39 Source: patient Limitations: No Limitations - History of Present Illness Initial Comments: She is a 73-year-old female who is presenting with lower back pain. Patient states that she chronically has some discomfort in the lower back however last several days and this is worsened. Patient states that she has had no falls or trauma. Patient denies any dysuria or urinary frequency. Patient denies any bowel or bladder dysfunction. - Related Data Previous Rx's Medication Instructions Recorded Last Taken Type Ketorolac [Toradol] 10 mg PO Q6H PRN #20 tablet 02/01/16 Unknown Rx diazePAM TAB [Valium] 2 mg PO TID PRN #12 tablet 03/27/16 Unknown Rx predniSONE [Deltasone] 20 mg PO QDAY #5 tab 03/27/16 Unknown Rx FLUoxetine [PROzac] 20 mg PO QDAY #40 tablet 07/18/17 Unknown Rx diazePAM TAB [Valium] 2 mg PO TID PRN #12 tablet 07/18/17 Unknown Rx Esomeprazole Magnesium [Nexium] 40 mg PO DAILY #30 capsule.dr 05/10/18 Unknown Rx Lisinopril [Zestril] 40 mg PO DAILY #30 tablet 05/10/18 Unknown Rx Mirtazapine [Remeron] 45 mg PO HS #30 tab.rapdis 05/10/18 Unknown Rx amLODIPine [Norvasc] 10 mg PO DAILY #30 tab 05/10/18 Unknown Rx traMADol [Ultram] 50 mg PO Q6HR PRN #12 tablet 05/12/18 Unknown Rx methOCARBAMOL [Robaxin TAB] 500 mg PO Q6H PRN #14 tablet 07/23/18 Unknown Rx traMADol [Ultram] 50 mg PO Q6HR PRN #12 tablet 07/23/18 Unknown Rx Allergies Allergy/AdvReac Type Severity Reaction Status Date / Time ibuprofen [From Motrin] Allergy Rash Verified 07/23/18 11:29 shrimp Allergy Unknown Verified 07/23/18 11:29 tetracycline Allergy Unknown Verified 07/23/18 11:29 ED Review of Systems ROS: Stated complaint: LOWER BACK PAIN Other details as noted in HPI Comment: All other systems reviewed and negative ED Back Pain Physical Exam - Exam General: Vital signs noted. No distress. Alert and acting appropriately. Back/Abdomen: Yes Perilumbar Tenderness, No Abdominal Tenderness, No Perithoracic Tenderness, No Sacroiliac Tenderness, No Flank Tenderness, No Straight Leg Raise Pain Neuro: Yes Normal Sensation, Yes Normal DTR's, Yes Normal Gait, No Motor Weakness ED Course Vital Signs 07/23/18 12:10 Temperature 98.3 F Pulse Rate 79 Respiratory 20 Rate Blood Pressure 128/89 O2 Sat by Pulse 98 Oximetry ED Medical Decision Making - Radiology Data [facility] [address] [place] [address] XRay Report Signed Patient: MARISA BRUNER MR# : [id number] : 1945 Acct:[id number] Age/Sex: 73 / F ADM Date: 07/23/18 Loc: ED Attending Dr: Ordering Physician: ANEUDY SMITH NP Date of Service: 07/23/18 Procedure(s): XR spine lumbosacral 2-3V Accession Number(s): [id number] cc: ANEUDY SMITH NP Fluoro Time In Minutes: LUMBAR SPINE RADIOGRAPHS INDICATION: Low back strain. COMPARISON: None similar. FINDINGS: AP and lateral lumbar spine radiographs demonstrate normal vertebral body stature. A transitional lumbosacral vertebra possible with advanced disc degeneration/adjacent sclerosis/heterogeneity. Multilevel lower lumbar lumbar facet arthropathy and some disc degeneration also suspected. Approximately 3 mm lower lumbar/lumbosacral spondylolisthesis may also be seen on the lateral view. Possible osteopenia. Mild multilevel lower thoracic spine degenerative changes. Mild left SI joint degenerative changes. Nonobstructive bowel gas pattern. Clear imaged lung bases. CONCLUSION: Multilevel spinal degenerative changes, greatest lower lumbar, as detailed above. Please correlate. Thank you for the opportunity to participate in this patient's care. Transcribed By: RS Dictated By: WALLACE ZARATE MD Electronically Authenticated By: WALLACE ZARATE MD Signed Date/Time: 07/23/181408 DD/ 04 TD/TT: 07/23/181408 - Medical Decision Making Patient will be started on Robaxin and Ultram for her acute on chronic back pain. Patient also referred to orthopedics. Patient discharged home. Critical care attestation.: If time is entered above; I have spent that time in minutes in the direct care of this critically ill patient, excluding procedure time. ED Disposition Clinical Impression: Degenerative joint disease of low back Disposition: DC-01 TO HOME OR SELFCARE Is pt being admited?: No Does the pt Need Aspirin: No Condition: Stable Instructions: Acute Low Back Pain (ED) Referrals: YESENIA GILLESPIE MD [Staff Physician] - 3-5 Days Time of Disposition: 15:10
== END 2018-07-23 15:16 | disposition home or self-care (01) ==
LOC: ED 11:26
DX: M51.36 Other intervertebral disc degeneration, lumbar region (principal); M19.90 Unspecified osteoarthritis, unspecified site; Z88.6 Allergy status to analgesic agent; Z88.1 Allergy status to other antibiotic agents; Z91.013 Allergy to seafood; Z79.899 Other long term (current) drug therapy
CPT/HCPCS: 72100; 99283

== ENCOUNTER 2018-09-22 13:39 | Emergency (ER) | payer MEDICARE ==
[2018-09-22 14:05] VITALS: BP 144/94
--- NOTE | 2018-09-22 14:10 | Emergency Department Report ---
Blank Doc - Documentation Documentation: 73 y o karlos presents with backpain radiating down leg no trauma, no fall tearful
--- NOTE | 2018-09-22 18:42 | Emergency Department Report ---
ED General Adult HPI - General Chief complaint: Back Pain/Injury Stated complaint: LOW BACK PAIN Time Seen by Provider: 09/22/18 14:07 Source: patient Mode of arrival: Ambulatory Limitations: No Limitations - History of Present Illness Initial comments: 73-year-old -[place] female department complaining of chronic low back pain and running out of her medications. To follow with her primary care care doctor in 2 days. States she does not see pain management, nausea, 70 pain. Pain management contract reports no new symptoms. No change in symptoms. No change in character of the symptoms. States that the constant lifting, pushing and pulling of her son who has multiple sclerosis as well as treatment of the acute on chronic pain of her lower back. She reports no loss of bowel, bladder, no saddle paresthesia. No weakness Location: back Radiation: back Quality: dull Consistency: constant Improves with: none Worsens with: none Associated Symptoms: denies other symptoms Treatments Prior to Arrival: none - Related Data Previous Rx's Medication Instructions Recorded Last Taken Type Ketorolac [Toradol] 10 mg PO Q6H PRN #20 tablet 02/01/16 Unknown Rx diazePAM TAB [Valium] 2 mg PO TID PRN #12 tablet 03/27/16 Unknown Rx predniSONE [Deltasone] 20 mg PO QDAY #5 tab 03/27/16 Unknown Rx FLUoxetine [PROzac] 20 mg PO QDAY #40 tablet 07/18/17 Unknown Rx diazePAM TAB [Valium] 2 mg PO TID PRN #12 tablet 07/18/17 Unknown Rx Esomeprazole Magnesium [Nexium] 40 mg PO DAILY #30 marcia. 05/10/18 Unknown Rx Lisinopril [Zestril] 40 mg PO DAILY #30 tablet 05/10/18 Unknown Rx Mirtazapine [Remeron] 45 mg PO HS #30 tab.rapdis 05/10/18 Unknown Rx amLODIPine [Norvasc] 10 mg PO DAILY #30 tab 05/10/18 Unknown Rx traMADol [Ultram] 50 mg PO Q6HR PRN #12 tablet 05/12/18 Unknown Rx methOCARBAMOL [Robaxin TAB] 500 mg PO Q6H PRN #14 tablet 07/23/18 Unknown Rx traMADol [Ultram] 50 mg PO Q6HR PRN #12 tablet 07/23/18 Unknown Rx methOCARBAMOL [Robaxin TAB] 750 mg PO Q8H PRN #20 tablet 09/22/18 Unknown Rx traMADol [Ultram] 50 mg PO Q12HR PRN #10 tablet 09/22/18 Unknown Rx Allergies Allergy/AdvReac Type Severity Reaction Status Date / Time ibuprofen [From Motrin] Allergy Rash Verified 07/23/18 11:29 shrimp Allergy Unknown Verified 07/23/18 11:29 tetracycline Allergy Unknown Verified 07/23/18 11:29 ED Review of Systems ROS: Stated complaint: LOW BACK PAIN Other details as noted in HPI Constitutional: denies: chills, fever Eyes: denies: eye pain, eye discharge, vision change ENT: denies: ear pain, throat pain Respiratory: denies: cough, shortness of breath, wheezing Cardiovascular: denies: chest pain, palpitations Endocrine: no symptoms reported Gastrointestinal: denies: abdominal pain, nausea, diarrhea Genitourinary: denies: urgency, dysuria, discharge Musculoskeletal: back pain. denies: joint swelling, arthralgia Skin: denies: rash, lesions Neurological: denies: headache, weakness, paresthesias Psychiatric: denies: anxiety, depression Hematological/Lymphatic: denies: easy bleeding, easy bruising ED Past Medical Hx - Past Medical History Previous Medical History?: Yes Hx Hypertension: Yes Hx GERD: Yes Hx Psychiatric Treatment: Yes (depression) - Surgical History Past Surgical History?: Yes Additional Surgical History: hysterectomy, cervical lami - Social History Smoking Status: Current Some Day Smoker Substance Use Type: Alcohol - Medications Home Medications: Home Medications Medication Instructions Recorded Confirmed Last Taken Type Ketorolac [Toradol] 10 mg PO Q6H PRN #20 tablet 02/01/16 Unknown Rx diazePAM TAB [Valium] 2 mg PO TID PRN #12 tablet 03/27/16 Unknown Rx predniSONE [Deltasone] 20 mg PO QDAY #5 tab 03/27/16 Unknown Rx FLUoxetine [PROzac] 20 mg PO QDAY #40 tablet 07/18/17 Unknown Rx diazePAM TAB [Valium] 2 mg PO TID PRN #12 tablet 07/18/17 Unknown Rx Esomeprazole Magnesium [Nexium] 40 mg PO DAILY #30 capsule. 05/10/18 Unknown Rx Lisinopril [Zestril] 40 mg PO DAILY #30 tablet 02/24/19 Unknown Rx Mirtazapine [Remeron] 45 mg PO HS #30 tab.rapdis 05/10/18 Unknown Rx amLODIPine [Norvasc] 10 mg PO DAILY #30 tab 05/10/18 Unknown Rx traMADol [Ultram] 50 mg PO Q6HR PRN #12 tablet 05/12/18 Unknown Rx methOCARBAMOL [Robaxin TAB] 500 mg PO Q6H PRN #14 tablet 07/23/18 Unknown Rx traMADol [Ultram] 50 mg PO Q6HR PRN #12 tablet 07/23/18 Unknown Rx methOCARBAMOL [Robaxin TAB] 750 mg PO Q8H PRN #20 tablet 09/22/18 Unknown Rx traMADol [Ultram] 50 mg PO Q12HR PRN #10 tablet 09/22/18 Unknown Rx ED Physical Exam - General Limitations: No Limitations General appearance: alert, in no apparent distress - Head Head exam: Present: atraumatic, normocephalic - Eye Eye exam: Present: normal appearance - ENT ENT exam: Present: mucous membranes moist - Neck Neck exam: Present: normal inspection, full ROM - Respiratory Respiratory exam: Present: normal lung sounds bilaterally. Absent: respiratory distress, wheezes, rales - Cardiovascular Cardiovascular Exam: Present: regular rate, normal rhythm. Absent: systolic murmur, diastolic murmur, rubs, gallop - GI/Abdominal GI/Abdominal exam: Present: soft, normal bowel sounds - Extremities Exam Extremities exam: Present: normal inspection - Back Exam Back exam: Present: normal inspection, muscle spasm, paraspinal tenderness, vertebral tenderness. Absent: CVA tenderness (R), CVA tenderness (L) - Neurological Exam Neurological exam: Present: alert, oriented X3, CN II-XII intact - Psychiatric Psychiatric exam: Present: normal affect, normal mood, anxious - Skin Skin exam: Present: warm, dry, intact, normal color. Absent: rash ED Course Vital Signs 09/22/18 14:01 Temperature 98.5 F Pulse Rate 97 H Respiratory 20 Rate Blood Pressure 144/94 O2 Sat by Pulse 100 Oximetry Critical care attestation.: If time is entered above; I have spent that time in minutes in the direct care of this critically ill patient, excluding procedure time. ED Disposition Clinical Impression: Chronic back pain Disposition: - TO HOME OR SELFCARE Is pt being admited?: No Does the pt Need Aspirin: No Condition: Stable Instructions: Chronic Back Pain (ED) Additional Instructions: . Follow up with her primary care doctor for chronic pain management. Prescriptions: methOCARBAMOL [Robaxin TAB] 750 mg PO Q8H PRN #20 tablet PRN Reason: muscle spasm and back pain\ traMADol [Ultram] 50 mg PO Q12HR PRN #10 tablet PRN Reason: Pain Referrals: HUGH SAGE MD [Primary Care Provider] - 3-5 Days
== END 2018-09-22 18:52 | disposition home or self-care (01) ==
LOC: ED 13:39
DX: G89.29 Other chronic pain (principal); M54.9 Dorsalgia, unspecified; I10 Essential (primary) hypertension; K21.9 Gastro-esophageal reflux disease without esophagitis; F17.200 Nicotine dependence, unspecified, uncomplicated; Z90.710 Acquired absence of both cervix and uterus; Z79.899 Other long term (current) drug therapy; Z88.8 Allergy status to other drugs, medicaments and biological substances; Z88.6 Allergy status to analgesic agent; Z88.1 Allergy status to other antibiotic agents; Z91.013 Allergy to seafood
CPT/HCPCS: 99282

== ENCOUNTER 2018-11-27 10:49 | Emergency (ER) | payer MEDICARE ==
--- NOTE | 2018-11-27 11:16 | Emergency Department Report ---
ED Recheck HPI - General Chief Complaint: Medical Clearance Stated Complaint: MED REFILL Time Seen by Provider: 11/27/18 11:10 Source: patient Mode of arrival: Ambulatory Limitations: No Limitations - History of Present Illness Initial Comments: 73 yo female comes to ER out of her bp and depression meds for 1.5 w. She is normally seen at [facility] but can not get there due to issues with family. Her young grandson brings her her today. 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 pt has no complaints no cp no sob no hi no si Complaint: medication refill request - Related Data Previous Rx's Medication Instructions Recorded Last Taken Type Lisinopril [Zestril] 40 mg PO DAILY #30 tablet 05/10/18 Unknown Rx FLUoxetine [PROzac] 20 mg PO QDAY #40 tablet 11/27/18 Unknown Rx Lisinopril [Zestril TAB] 40 mg PO QDAY #30 tablet 11/27/18 Unknown Rx Mirtazapine [Remeron] 45 mg PO HS #30 tab.rapdis 11/27/18 Unknown Rx amLODIPine [Norvasc] 10 mg PO DAILY #30 tab 11/27/18 Unknown Rx Allergies Allergy/AdvReac Type Severity Reaction Status Date / Time ibuprofen [From Motrin] Allergy Rash Verified 07/23/18 11:29 shrimp Allergy Unknown Verified 07/23/18 11:29 tetracycline Allergy Unknown Verified 07/23/18 11:29 ED Review of Systems ROS: Stated complaint: MED REFILL Other details as noted in HPI Comment: All other systems reviewed and negative ED Past Medical Hx - Past Medical History Previous Medical History?: Yes Hx Hypertension: Yes Hx GERD: Yes Hx Psychiatric Treatment: Yes (depression) - Surgical History Past Surgical History?: Yes Additional Surgical History: hysterectomy, cervical lami - Family History Family history: no significant - Social History Smoking Status: Current Every Day Smoker Substance Use Type: None - Medications Home Medications: Home Medications Medication Instructions Recorded Confirmed Last Taken Type Lisinopril [Zestril] 40 mg PO DAILY #30 tablet 05/10/18 Unknown Rx FLUoxetine [PROzac] 20 mg PO QDAY #40 tablet 11/27/18 Unknown Rx Lisinopril [Zestril TAB] 40 mg PO QDAY #30 tablet 11/27/18 Unknown Rx Mirtazapine [Remeron] 45 mg PO HS #30 tab.rapdis 11/27/18 Unknown Rx amLODIPine [Norvasc] 10 mg PO DAILY #30 tab 11/27/18 Unknown Rx ED Physical Exam - General Limitations: No Limitations General appearance: alert - Head Head exam: Present: normocephalic - Eye Eye exam: Present: normal appearance - ENT ENT exam: Present: mucous membranes moist - Neck Neck exam: Present: normal inspection - Respiratory Respiratory exam: Present: normal lung sounds bilaterally - Cardiovascular Cardiovascular Exam: Present: regular rate - GI/Abdominal GI/Abdominal exam: Present: soft, normal bowel sounds - Extremities Exam Extremities exam: Present: normal inspection - Back Exam Back exam: Present: normal inspection - Neurological Exam Neurological exam: Present: alert, oriented X3, CN II-XII intact - Psychiatric Psychiatric exam: Present: normal affect, normal mood ED Course Vital Signs 11/27/18 11:00 Temperature 98.6 F Pulse Rate 95 H Respiratory 20 Rate Blood Pressure 156/101 O2 Sat by Pulse 99 Oximetry ED Recheck MDM - Core Measures Measure Exclusions: not indicated - Differential Diagnosis Prescription Refill(s) - Medical Decision Making educated pt on future med refills and need to see PCP at [facility]. verbalizes understanding. Dc home with norvasc, lisinopril, remeron and prozac refill no hi/ no si/ no physical complaints Vital Signs 11/27/18 11:00 Temperature 98.6 F Pulse Rate 95 H Respiratory 20 Rate Blood Pressure 156/101 O2 Sat by Pulse 99 Oximetry Critical care attestation.: If time is entered above; I have spent that time in minutes in the direct care of this critically ill patient, excluding procedure time. ED Disposition Clinical Impression: Medication refill Disposition: DC-01 TO HOME OR SELFCARE Is pt being admited?: No Does the pt Need Aspirin: No Condition: Stable Additional Instructions: follow up with pcp at [facility] is[facility]uro Referrals: [facility] [Outside] - 3-5 Days Time of Disposition: 11:14
[2018-11-27 12:32] VITALS: BP 150/90
== END 2018-11-27 12:36 | disposition home or self-care (01) ==
LOC: ED 10:49
DX: F32.9 Major depressive disorder, single episode, unspecified (principal); Z76.0 Encounter for issue of repeat prescription; Z91.013 Allergy to seafood; Z88.1 Allergy status to other antibiotic agents; Z88.6 Allergy status to analgesic agent
CPT/HCPCS: 99282

== ENCOUNTER 2019-04-26 15:10 | Emergency (ER) | payer MEDICARE ==
[2019-04-26 17:30] VITALS: BP 166/100
--- NOTE | 2019-04-26 17:34 | Emergency Department Report ---
ED Recheck HPI - General Chief Complaint: Back Pain/Injury Stated Complaint: BACK PAIN, NEEDS MEDS Time Seen by Provider: 04/26/19 17:29 Source: patient Mode of arrival: Ambulatory Limitations: No Limitations - History of Present Illness Initial Comments: This is a 74-year-old female nontoxic, well in appearance with no signs of distress presents to the ED for medication refills and acute on chronic lower back pain. Patient denies any trauma. Denies any bladder or bowel instability. Patient denies any urinary symptoms.. [place] Denies having PCP but is looking to get PCP. Patient stated she is asymptotic. Denies any headache, abdominal pain, back pain. Patient denies any urinary symptoms. Patient denies any fever, chills, headache, nausea, vomiting, chest pain or shortness of breathe. denies any other symptoms or complaints. Denies any allergies. MD Complaint: medication refill request -: days(s) Returns Today for: request for prescription Symptoms Since Prior Visit: no new symptoms Associated Symptoms: none. denies: fever, chills, chest pain, shortness of breath, rash, malaise, nasuea, abdominal pain - Related Data Previous Rx's Medication Instructions Recorded Last Taken Type Lisinopril [Zestril] 40 mg PO DAILY #30 tablet 05/10/18 Unknown Rx FLUoxetine HCL [Prozac] 20 mg PO DAILY #30 capsule 11/27/18 Unknown Rx Mirtazapine [Remeron 45mg TAB] 45 mg PO QHS #30 tab.rapdis 04/26/19 Unknown Rx amLODIPine 10 mg PO DAILY #30 tab 04/26/19 Unknown Rx lisinopriL [Zestril TAB] 40 mg PO QDAY #30 tablet 04/26/19 Unknown Rx Allergies Allergy/AdvReac Type Severity Reaction Status Date / Time ibuprofen [From Motrin] Allergy Rash Verified 07/23/18 11:29 shrimp Allergy Unknown Verified 07/23/18 11:29 tetracycline Allergy Unknown Verified 07/23/18 11:29 ED Review of Systems ROS: Stated complaint: BACK PAIN, NEEDS MEDS Other details as noted in HPI Constitutional: denies: chills, fever Eyes: denies: eye pain, eye discharge, vision change ENT: denies: ear pain, throat pain Respiratory: denies: cough, shortness of breath, wheezing Cardiovascular: denies: chest pain, palpitations Endocrine: no symptoms reported Gastrointestinal: denies: abdominal pain, nausea, diarrhea Genitourinary: denies: urgency, dysuria, discharge Musculoskeletal: denies: back pain, joint swelling, arthralgia Skin: denies: rash, lesions Neurological: denies: headache, weakness, paresthesias Psychiatric: denies: anxiety, depression Hematological/Lymphatic: denies: easy bleeding, easy bruising ED Past Medical Hx - Past Medical History Previous Medical History?: Yes Hx Hypertension: Yes Hx GERD: Yes Hx Psychiatric Treatment: Yes (depression) - Surgical History Past Surgical History?: Yes Additional Surgical History: hysterectomy, cervical lami - Social History Smoking Status: Current Every Day Smoker Substance Use Type: None - Medications Home Medications: Home Medications Medication Instructions Recorded Confirmed Last Taken Type Lisinopril [Zestril] 40 mg PO DAILY #30 tablet 05/10/18 Unknown Rx FLUoxetine HCL [Prozac] 20 mg PO DAILY #30 capsule 11/27/18 Unknown Rx Mirtazapine [Remeron 45mg TAB] 45 mg PO QHS #30 tab.rapdis 04/26/19 Unknown Rx amLODIPine 10 mg PO DAILY #30 tab 04/26/19 Unknown Rx lisinopriL [Zestril TAB] 40 mg PO QDAY #30 tablet 04/26/19 Unknown Rx ED Physical Exam - General Limitations: No Limitations General appearance: alert, in no apparent distress - Head Head exam: Present: atraumatic, normocephalic - Eye Eye exam: Present: normal appearance - Neck Neck exam: Present: normal inspection, full ROM. Absent: tenderness, meningismus, lymphadenopathy - Respiratory Respiratory exam: Present: normal lung sounds bilaterally. Absent: respiratory distress, wheezes, rales, rhonchi, stridor, chest wall tenderness, accessory muscle use, decreased breath sounds, prolonged expiratory - Cardiovascular Cardiovascular Exam: Present: regular rate, normal rhythm, normal heart sounds. Absent: irregular rhythm, systolic murmur, diastolic murmur, rubs, gallop - GI/Abdominal GI/Abdominal exam: Present: soft, normal bowel sounds. Absent: distended, tenderness, guarding, rebound, rigid, diminished bowel sounds - Extremities Exam Extremities exam: Present: normal inspection, full ROM, normal capillary refill. Absent: tenderness - Back Exam Back exam: Present: normal inspection, full ROM, paraspinal tenderness (lumbar paraspinal). Absent: tenderness, CVA tenderness (R), CVA tenderness (L), muscle spasm, vertebral tenderness, rash noted - Expanded Back Exam Expanded Back exam: Absent: saddle anesthesia Back exam: Negative Straight Leg Raising: Left, Right - Neurological Exam Neurological exam: Present: alert, oriented X3, normal gait - Psychiatric Psychiatric exam: Present: normal affect, normal mood - Skin Skin exam: Present: warm, dry, intact, normal color. Absent: rash ED Course Vital Signs 04/26/19 17:24 Temperature 99 F Pulse Rate 108 H Respiratory 18 Rate Blood Pressure 166/100 O2 Sat by Pulse 99 Oximetry - Reevaluation(s) Reevaluation #1: 04/26/19 17:32 Patient is speaking in full sentences with no signs of distress noted. ED Recheck MDM - Medical Decision Making This is a 74-year-old female that presents with chroninc back pains. Patient is stable was examined by me. There is no spinal tenderness. There is no cauda equina syndrome during examination. No bladder or bowel instability. Patient was referred to Follow-up with a primary care doctor in 3-5 days or if symptoms worsen and continue return to emergency room as soon as possible. At time of discharge, the patient does not seem toxic or ill in appearance. No acute signs of distress noted. Patient agrees to discharge treatment plan of care. No further questions noted by the patient. Critical care attestation.: If time is entered above; I have spent that time in minutes in the direct care of this critically ill patient, excluding procedure time. ED Disposition Clinical Impression: Medication refill Chronic back pain Qualifiers: Back pain location: low back pain Back pain laterality: unspecified Sciatica presence: unspecified whether sciatica present Qualified Code(s): M54.5 - Low back pain; G89.29 - Other chronic pain Disposition: - TO HOME OR SELFCARE Is pt being admited?: No Does the pt Need Aspirin: No Condition: Stable Additional Instructions: Follow-up with a primary care doctor in 3-5 days or if symptoms worsen and continue return to emergency room as soon as possible. Prescriptions: Mirtazapine [Remeron 45mg TAB] 45 mg PO QHS #30 tab.rapdis amLODIPine 10 mg PO DAILY #30 tab lisinopriL [Zestril TAB] 40 mg PO QDAY #30 tablet Referrals: PRIMARY CAREMD [Referring] - 3-5 Days TAVIA COLIN MD [Staff Physician] - 3-5 Days [facility] [Outside] - 3-5 Days
== END 2019-04-26 18:36 | disposition home or self-care (01) ==
LOC: ED 15:10
DX: G89.29 Other chronic pain (principal); M54.5 Low back pain; I10 Essential (primary) hypertension; K21.9 Gastro-esophageal reflux disease without esophagitis; F32.9 Major depressive disorder, single episode, unspecified; F17.200 Nicotine dependence, unspecified, uncomplicated; Z76.0 Encounter for issue of repeat prescription; Z90.710 Acquired absence of both cervix and uterus; Z79.899 Other long term (current) drug therapy; Z88.8 Allergy status to other drugs, medicaments and biological substances
CPT/HCPCS: 99282

== ENCOUNTER 2019-06-16 13:20 | Emergency (ER) | payer MEDICARE ==
[2019-06-16 13:26] VITALS: BP 111/85
--- NOTE | 2019-06-16 13:34 | Emergency Department Report ---
Chief Complaint: Medical Clearance Stated Complaint: BP MED REFILL Time Seen by Provider: 06/16/19 13:27 - HPI History of Present Illness: 74 y/o female comes in wanting a refill on her Lisinopril and amlodipine. She reports that she forgets. No chest pain no SOB. - Exam Vital Signs: Vital Signs 06/16/19 13:24 Temperature 98.2 F Pulse Rate 125 H Respiratory 16 Rate Blood Pressure 111/85 [Right] O2 Sat by Pulse 99 Oximetry Physical Exam: AxO times 3 NAD Is tearful concern for her son who is being seen. Ambulatory without difficulties MSE screening note: Focused history and physical exam performed. Due to findings the following was ordered: 74 y/o female comes in wanting a refill on her Lisinopril and amlodipine. She reports that she forgets. No chest pain no SOB. ED Disposition for MSE Clinical Impression: Medicine refill, HTN (hypertension) Disposition: Z- MED SCREENING EXAM-LEFT Is pt being admited?: No Does the pt Need Aspirin: No Condition: Stable Instructions: Hypertension (ED) Additional Instructions: It is very important for you to follow up with a PCP for chronic disease management. I have listed several providers below. Prescriptions: amLODIPine 10 mg PO DAILY #30 tab Lisinopril/Hydrochlorothiazide [Zestoretic 10-12.5 mg Tablet] 1 each PO QDAY 30 Days #30 tablet Referrals: TAVIA COLIN MD [Staff Physician] - 3-5 Days NADINE WHITNEY JR, MD [Staff Physician] - 3-5 Days
== END 2019-06-16 14:56 | disposition left against medical advice (07) ==
LOC: ED 13:20
DX: I10 Essential (primary) hypertension (principal); Z76.0 Encounter for issue of repeat prescription
CPT/HCPCS: 99282

== ENCOUNTER 2019-09-13 10:23 | Emergency (ER) | payer MEDICARE ==
--- NOTE | 2019-09-13 11:50 | Event Note ---
ED Screening Note Date of service: 09/13/19 Time: 11:47 ED Screening Note: 74-year-old -Malagasy female patient presents with complaints of an 74-year-old -Malag[place] female patient presents with complaints of chest congestion, cough, and loss of appetite x 1 week unsure of fever Denies chest pain or shortness of breath This initial assessment/diagnostic orders/clinical plan/treatment(s) is/are subject to change based on patients health status, clinical progression and re-assessment by fellow clinical providers in the ED. Further treatment and workup at subsequent clinical providers discretion. Patient/guardian urged not to elope from the ED as their condition may be serious if not clinically assessed and managed. Initial orders include: labs CXR
--- NOTE | 2019-09-13 12:51 | XRay Report ---
CHEST 2 VIEWS INDICATION: chest pain. COMPARISON: None. FINDINGS: Support devices: None. Heart: Within normal limits. Lungs/Pleura: No acute air space or interstitial disease. No significant pleural effusion. IMPRESSION: No acute findings. Signer Name: Marlon Macias MD Signed: 09/13/2019 12:47 PM Workstation Name: [id number]
[2019-09-13 16:18] LABS: Basophils # (Auto) 0.1 K/mm3 (0.0-0.1); Basophils % (Auto) 1.7 % (0.0-1.8); Hematocrit 36.4 % (30.3-42.9); Hemoglobin 12.5 gm/dl (10.1-14.3); Lymphocytes # (Auto) 1.4 K/mm3 (1.2-5.4); Lymphocytes % (Auto) 28.1 % (13.4-35.0); Mean Corpuscular HGB Conc 35 % (30-34); Mean Corpuscular Volume 96 fl (79-97); Monocytes # (Auto) 0.5 K/mm3 (0.0-0.8); Monocytes % (Auto) 10.2 % (0.0-7.3); Platelet Count 135 K/mm3 (140-440); Red Blood Count 3.77 M/mm3 (3.65-5.03); Red Cell Distribution Width 17.1 % (13.2-15.2)
[2019-09-13 16:48] LABS: Alanine Aminotransferase 44 units/L (7-56); Albumin 4.2 g/dL (3.9-5); BUN/Creatinine Ratio 14; Blood Urea Nitrogen 14 mg/dL (7-17); Calcium 9.4 mg/dL (8.4-10.2); Hemolysis Index 6
--- NOTE | 2019-09-13 18:39 | Emergency Department Report ---
HPI - General Chief Complaint: Nausea/Vomiting/Diarrhea Time Seen by Provider: 09/13/19 17:57 - HPI HPI: 74-year-old female presents to the emergency department with multiple complaints. The patient says "I have 2 pinched nerves in my back and pain in my hips." The patient also complains of having some recent nausea and vomiting but that has since resolved and now the patient just has decreased appetite. The patient denies any suicidal ideations or homicidal ideations, the patient does admit to some depression and anxiety. She has been out of her blood pressure medications for the past 3 days and out of her mirtazapine for the past 4 days. She does not have a primary care physician or psychiatrist. She also has a past medical history of hypertension and GERD. She denies any fever, chest pain, shortness of breath, abdominal pain. No recent travel or sick contacts at home. ED Past Medical Hx - Past Medical History Previous Medical History?: Yes Hx Hypertension: Yes Hx GERD: Yes Hx Psychiatric Treatment: Yes (depression) - Surgical History Past Surgical History?: Yes Additional Surgical History: Hysterectomy - Social History Smoking Status: Unknown if ever smoked Substance Use Type: None - Medications Home Medications: Home Medications Medication Instructions Recorded Confirmed Last Taken Type Lisinopril [Zestril] 40 mg PO DAILY #30 tablet 05/10/18 08/06/19 08/06/19 09:00 Rx FLUoxetine HCL [Prozac] 20 mg PO DAILY #30 capsule 11/27/18 Unknown Rx Lisinopril/Hydrochlorothiazide 1 each PO QDAY 30 Days #30 tablet 06/16/19 Unknown Rx [Zestoretic 10-12.5 mg Tablet] Mirtazapine [Remeron 45mg TAB] 45 mg PO QHS #30 tab.rapdis 09/13/19 Unknown Rx amLODIPine 10 mg PO DAILY #30 tab 09/13/19 Unknown Rx lisinopriL [Zestril TAB] 40 mg PO QDAY #30 tablet 09/13/19 Unknown Rx methOCARBAMOL [Robaxin TAB] 500 mg PO Q6H PRN #14 tablet 09/13/19 Unknown Rx ED Review of Systems ROS: Stated complaint: V/C Other details as noted in HPI Comment: All other systems reviewed and negative Constitutional: denies: chills, fever Eyes: denies: eye pain, vision change ENT: denies: ear pain, throat pain Respiratory: denies: cough, shortness of breath Cardiovascular: denies: chest pain, palpitations Gastrointestinal: nausea, vomiting Genitourinary: denies: dysuria, discharge Musculoskeletal: back pain, myalgia. denies: joint swelling Skin: denies: rash, lesions Neurological: denies: headache, weakness Physical Exam - Physical Exam Vital Signs: Vital Signs 09/13/19 09/13/19 11:45 11:49 Temperature 98.1 F Pulse Rate 125 H 108 H Respiratory 20 Rate Blood Pressure 130/90 O2 Sat by Pulse 100 Oximetry Physical Exam: GENERAL: The patient is well-developed well-nourished. HENT: Normocephalic. Atraumatic. Patient has moist mucous membranes. EYES: Extraocular motions are intact. Pupils equal reactive to light bilaterally. No nystagmus. NECK: Supple. Trachea is midline. CHEST/LUNGS: Clear to auscultation. There is no respiratory distress noted. HEART/CARDIOVASCULAR: Regular. There is no tachycardia. ABDOMEN: Abdomen is soft, nontender. Patient has normal bowel sounds. SKIN: Skin is warm and dry. NEURO: The patient is awake, alert, and oriented. The patient is cooperative. The patient has no focal neurologic deficits. Normal speech. Cranial nerves II through XII grossly intact. No facial asymmetry. No pronator drift. No dysmetria. MUSCULOSKELETAL: There is no tenderness or deformity. There is no limitation range of motion. There is no evidence of acute injury. BACK: No midline thoracic or lumbar tenderness to palpation, step-off or deformity. ED Course Vital Signs 09/13/19 09/13/19 11:45 11:49 Temperature 98.1 F Pulse Rate 125 H 108 H Respiratory 20 Rate Blood Pressure 130/90 O2 Sat by Pulse 100 Oximetry ED Medical Decision Making - Lab Data Result diagrams: 09/13/19 15:54 09/13/19 15:54 - EKG Data -: EKG Interpreted by Me EKG shows normal: sinus rhythm, axis, intervals, QRS complexes, ST-T waves Rate: tachycardia (109 bpm) - EKG Data When compared to previous EKG there are: previous EKG unavailable Interpretation: normal EKG (with mild tachycardia) - Radiology Data Radiology results: image reviewed interpreted by me: Chest x-ray does not show any acute process. There are no pleural effusions, obvious pneumonia and there is no pneumothorax. - Medical Decision Making This patient presents to the emergency department with the complaint of some chronic back pain, shakiness, anxiety and depression without suicidal or homi cidal ideations, some decreased appetite, and one episode of nausea with vomiting. On examination the patient does not have any focal, motor or sensory deficits and her cranial nerves are intact. Patient's labs have been unremarkable including CBC, metabolic panel. EKG did not show any signs of ST elevation [place] or any significant dysrhythmia. A chest x-ray was done through triage but did not show any pleural effusions, pneumonia, pneumothorax, or any other acute process. Patient was seen ambulatory throughout the emergency department and appears stable. Patient will be discharged home to follow-up with her primary care physician and has been given a referral for a local orthopedist regarding her back and hip pains. She has been given a refill of her mirtazapine and her blood pressure medications, and has been given a short course of muscle relaxers. She will return to the ER with any worsening of her symptoms or any acute distress. Critical Care Time: No Critical care attestation.: If time is entered above; I have spent that time in minutes in the direct care of this critically ill patient, excluding procedure time. ED Disposition Clinical Impression: Medication refill, History of hypertension Chronic back pain Qualifiers: Back pain location: low back pain Back pain laterality: bilateral Sciatica presence: without sciatica Qualified Code(s): M54.5 - Low back pain; G89.29 - Other chronic pain Disposition: TO HOME OR SELFCARE Is pt being admited?: No Condition: Stable Instructions: Depression (ED), Back Pain (ED), Anxiety (ED) Additional Instructions: Please follow-up with a primary care physician in the next few days, and I have given you a referral for a local primary care physician and a local clinic. I have also given you a referral for Dr. Farley, a local orthopedist, to follow-up regarding your chronic back pains. Return to the emergency department with any worsening of your symptoms or any acute distress. You have been prescribed a medication that is sedating and therefore should not be taken prior to driving, working, and responsible for children and in no way should be mixed with alcohol of any quantity. Prescriptions: Mirtazapine [Remeron 45mg TAB] 45 mg PO QHS #30 tab.rapdis amLODIPine 10 mg PO DAILY #30 tab methOCARBAMOL [Robaxin TAB] 500 mg PO Q6H PRN #14 tablet PRN Reason: Muscle Spasm lisinopriL [Zestril TAB] 40 mg PO QDAY #30 tablet Referrals: PRIMARY CAREMD [Primary Care Provider] - 3-5 Days YESENIA FARLEY MD [Staff Physician] - 3-5 Days TAVIA COLIN MD [Staff Physician] - 3-[address] [facility] [Provider Group] - 3-5 Days Time of Disposition: 18:51
[2019-09-13 19:16] VITALS: BP 119/90
== END 2019-09-13 19:19 | disposition home or self-care (01) ==
LOC: ED 10:23
DX: I10 Essential (primary) hypertension (principal); M54.9 Dorsalgia, unspecified; G89.29 Other chronic pain; Z76.0 Encounter for issue of repeat prescription; K21.9 Gastro-esophageal reflux disease without esophagitis; F32.9 Major depressive disorder, single episode, unspecified; Z79.899 Other long term (current) drug therapy; Z90.710 Acquired absence of both cervix and uterus; Z91.013 Allergy to seafood; Z88.8 Allergy status to other drugs, medicaments and biological substances
CPT/HCPCS: 36415; 71046; 80053; 83690; 85025; 85730; 93005

== ENCOUNTER 2019-11-20 10:22 | Emergency (ER) | payer MEDICARE ==
[2019-11-20 10:38] VITALS: BP 152/99
--- NOTE | 2019-11-20 11:06 | Emergency Department Report ---
ED General Adult HPI - General Chief complaint: Medical Clearance Stated complaint: REFILL HBP MEDS PUI?: No Time Seen by Provider: 11/20/19 10:43 Source: patient Mode of arrival: Ambulatory Limitations: No Limitations - History of Present Illness Initial comments: Is a pleasant 74-year-old female presents the emergency department with a chief complaint of elevated blood pressure. Patient states she has been out of her lisinopril and amlodipine for the past 2 days. She reports she just moved here and does not yet have a primary care doctor. She is very concerned about missing her blood pressure medications due to in the past she states she missed 1 dose of her blood pressure medications and had a stroke. She denies any symptoms other than some chronic low back pain. Denies weakness, headache, dizziness, blurry vision, nausea, vomiting, diarrhea, chest pain, shortness of breath or any other associated symptoms. - Related Data Previous Rx's Medication Instructions Recorded Last Taken Type Lisinopril [Zestril] 40 mg PO DAILY #30 tablet 05/10/18 08/06/19 09:00 Rx FLUoxetine HCL [Prozac] 20 mg PO DAILY #30 capsule 11/27/18 Unknown Rx Lisinopril/Hydrochlorothiazide 1 each PO QDAY 30 Days #30 tablet 06/16/19 Unknown Rx [Zestoretic 10-12.5 mg Tablet] Mirtazapine [Remeron 45mg TAB] 45 mg PO QHS #30 tab.rapdis 09/13/19 Unknown Rx methOCARBAMOL [Robaxin TAB] 500 mg PO Q6H PRN #14 tablet 09/13/19 Unknown Rx amLODIPine 10 mg PO DAILY #30 tab 11/20/19 Unknown Rx lisinopriL [Zestril TAB] 40 mg PO QDAY #30 tablet 11/20/19 Unknown Rx Allergies Allergy/AdvReac Type Severity Reaction Status Date / Time ibuprofen [From Motrin] Allergy Rash Verified 08/06/19 10:57 shrimp Allergy Unknown Verified 08/06/19 10:57 tetracycline Allergy Unknown Verified 08/06/19 10:57 ED Review of Systems ROS: Stated complaint: REFILL HBP MEDS Other details as noted in HPI Comment: All other systems reviewed and negative Constitutional: denies: chills, fever Eyes: denies: eye pain, eye discharge, vision change ENT: denies: ear pain, throat pain Respiratory: denies: cough, shortness of breath, wheezing Cardiovascular: denies: chest pain, palpitations Endocrine: no symptoms reported Gastrointestinal: denies: abdominal pain, nausea, diarrhea Genitourinary: denies: urgency, dysuria, discharge Musculoskeletal: denies: back pain, joint swelling, arthralgia Skin: denies: rash, lesions Neurological: denies: headache, weakness, paresthesias Psychiatric: denies: anxiety, depression Hematological/Lymphatic: denies: easy bleeding, easy bruising ED Past Medical Hx - Past Medical History Previous Medical History?: Yes Hx Hypertension: Yes Hx GERD: Yes Hx Psychiatric Treatment: Yes (depression) - Surgical History Past Surgical History?: Yes Additional Surgical History: Hysterectomy - Social History Smoking Status: Unknown if ever smoked Substance Use Type: None - Medications Home Medications: Home Medications Medication Instructions Recorded Confirmed Last Taken Type Lisinopril [Zestril] 40 mg PO DAILY #30 tablet 05/10/18 08/06/19 08/06/19 09:00 Rx FLUoxetine HCL [Prozac] 20 mg PO DAILY #30 capsule 11/27/18 Unknown Rx Lisinopril/Hydrochlorothiazide 1 each PO QDAY 30 Days #30 tablet 06/16/19 Unknown Rx [Zestoretic 10-12.5 mg Tablet] Mirtazapine [Remeron 45mg TAB] 45 mg PO QHS #30 tab.rapdis 09/13/19 Unknown Rx methOCARBAMOL [Robaxin TAB] 500 mg PO Q6H PRN #14 tablet 09/13/19 Unknown Rx amLODIPine 10 mg PO DAILY #30 tab 11/20/19 Unknown Rx lisinopriL [Zestril TAB] 40 mg PO QDAY #30 tablet 11/20/19 Unknown Rx ED Physical Exam - General Limitations: No Limitations General appearance: alert, in no apparent distress - Head Head exam: Present: atraumatic, normocephalic - Eye Eye exam: Present: normal appearance, PERRL, EOMI Pupils: Present: normal accommodation - ENT ENT exam: Present: normal exam, normal orophraynx, mucous membranes moist - Neck Neck exam: Present: normal inspection, full ROM. Absent: tenderness, meningismus - Respiratory Respiratory exam: Present: normal lung sounds bilaterally. Absent: respiratory distress, wheezes, rales, rhonchi, stridor - Cardiovascular Cardiovascular Exam: Present: regular rate, normal rhythm, normal heart sounds. Absent: systolic murmur, diastolic murmur, rubs, gallop - GI/Abdominal GI/Abdominal exam: Present: soft, normal bowel sounds - Extremities Exam Extremities exam: Present: normal inspection, full ROM. Absent: tenderness - Back Exam Back exam: Present: normal inspection, full ROM. Absent: tenderness, CVA tenderness (R), CVA tenderness (L) - Neurological Exam Neurological exam: Present: alert, oriented X3, CN II-XII intact, normal gait. Absent: motor sensory deficit - Psychiatric Psychiatric exam: Present: normal affect, normal mood - Skin Skin exam: Present: warm, dry, intact, normal color. Absent: rash ED Course Vital Signs 11/20/19 10:35 Temperature 98.6 F Pulse Rate 111 H Respiratory 20 Rate Blood Pressure 152/99 O2 Sat by Pulse 99 Oximetry ED Medical Decision Making - Medical Decision Making Patient nontoxic in no acute distress. Blood pressure is mildly elevated. She had no focal neurologic deficits with an NIH of 0. She had a regular rate and rhythm on auscultation and palpation of her pulses.. She was tearful in triage and very concerned about missing her blood pressure medication. Educated her about the ER not being an appropriate place for medication refills and is really important that she follows up with her primary care doctor to have a proper control of her blood pressure and other chronic medical conditions. She verbalized understanding of this and will follow-up this week. She is instructed to return to the emerge department any changing worsening symptoms. She verbalized understand the diagnosis, treatment plan and follow-up instructions all of her questions were answered. Critical care attestation.: If time is entered above; I have spent that time in minutes in the direct care of this critically ill patient, excluding procedure time. ED Disposition Clinical Impression: Asymptomatic hypertension Disposition: TO HOME OR SELFCARE Is pt being admited?: No Condition: Stable Instructions: Hypertension (ED) Prescriptions: amLODIPine 10 mg PO DAILY #30 tab lisinopriL [Zestril TAB] 40 mg PO QDAY #30 tablet Referrals: [facility] [Provider Group] - 3-5 Days TAVIA COLIN MD [Staff Physician] - 3-5 Days Time of Disposition: 11:04
== END 2019-11-20 11:50 | disposition home or self-care (01) ==
LOC: ED 10:22
DX: I10 Essential (primary) hypertension (principal); K21.9 Gastro-esophageal reflux disease without esophagitis; F32.9 Major depressive disorder, single episode, unspecified; Z90.710 Acquired absence of both cervix and uterus; Z79.899 Other long term (current) drug therapy; Z91.013 Allergy to seafood; Z88.8 Allergy status to other drugs, medicaments and biological substances
CPT/HCPCS: 99282

== ENCOUNTER 2020-04-05 08:53 | Emergency (ER) | payer MEDICARE ==
--- NOTE | 2020-04-05 09:12 | Event Note ---
ED Screening Note ED Screening Note: pt has been out of her lisinopril for a couple days she developed headache and thought it was bp related pt states she never gets giraldo and this is bad has been for over a day nausea; no vomiting no focal neuro def she has a new tremor since off med the only other med she is on is norvasc has no pcp chills pos no cp or sob HR 142 in triage pmh htn ill appearing endorses recent weight loss This initial assessment/diagnostic orders/clinical plan/treatment(s) is/are subject to change based on patients health status, clinical progression and re- assessment by fellow clinical providers in the ED. Further treatment and workup at subsequent clinical providers discretion. Patient/guardian urged not to elope from the ED as their condition may be serious if not clinically assessed and managed. Initial orders include: ekg labs head ct
--- NOTE | 2020-04-05 09:48 | XRay Report ---
CHEST 2 VIEWS INDICATION / CLINICAL INFORMATION: Chest Pain. FINDINGS: SUPPORT DEVICES: None. HEART / MEDIASTINUM: No significant abnormality. LUNGS / PLEURA: No significant pulmonary or pleural abnormality. No pneumothorax. ADDITIONAL FINDINGS: No significant additional findings. IMPRESSION: 1. No acute findings. Signer Name: Ramses Contreras MD Signed: 04/05/2020 9:44 AM Workstation Name: [id number]
[2020-04-05 09:59] LABS: Basophils # (Auto) 0.1 K/mm3 (0.0-0.1); Basophils % (Auto) 1.9 % (0.0-1.8); Eosinophils % (Auto) 0.3 % (0.0-4.3); Hematocrit 35.3 % (30.3-42.9); Hemoglobin 11.5 gm/dl (10.1-14.3); Lymphocytes # (Auto) 0.9 K/mm3 (1.2-5.4); Lymphocytes % (Auto) 32.5 % (13.4-35.0); Mean Corpuscular HGB Conc 33 % (30-34); Mean Corpuscular Volume 99 fl (79-97); Monocytes # (Auto) 0.3 K/mm3 (0.0-0.8); Monocytes % (Auto) 10.2 % (0.0-7.3); Platelet Count 189 K/mm3 (140-440); Red Blood Count 3.58 M/mm3 (3.65-5.03); Red Cell Distribution Width 15.7 % (13.2-15.2)
--- NOTE | 2020-04-05 10:02 | Cat Scan Report ---
CT HEAD WITHOUT CONTRAST INDICATION / CLINICAL INFORMATION: severe headache. TECHNIQUE: Axial imaging performed from the skull apex through the skull base without the use of cont rast. Sagittal and coronal reformatted images. All CT scans at this location are performed using CT dose reduction for ALARA by means of automated exposure control. COMPARISON: 03/26/2016 FINDINGS: CEREBRAL PARENCHYMA: No acute parenchymal abnormality is detected. Mild nonspecific hypoattenuation i n the white matter consistent with chronic microangiopathy is stable. No chronic infarct. HEMORRHAGE: None. EXTRA-AXIAL SPACES: Normal in size and morphology for the patient's age. VENTRICULAR SYSTEM: Normal in size and morphology for the patient's age. MIDLINE SHIFT OR HERNIATION: None. CEREBELLUM / BRAINSTEM: No significant abnormality. CALVARIUM: No significant abnormality. ORBITS: Normal as visualized. PARANASAL SINUSES / MASTOID AIR CELLS: Normal as visualized. SOFT TISSUES of HEAD: No significant abnormality. ADDITIONAL FINDINGS: None. IMPRESSION: No acute intracranial abnormality. Mild chronic white matter changes which are stable since 03/26/2016 . Signer Name: Minor Orozco Jr, MD Signed: 04/05/2020 9:58 AM Workstation Name: [id number]
[2020-04-05] MEDS ORDERED: ACETAMINOPHEN 325 MG TAB PO ONE (10:09)
[2020-04-05] MEDS ORDERED: diphenhydrAMINE 50 MG/ML VIAL IV ONE (10:09)
[2020-04-05] MEDS ORDERED: METOCLOPRAMIDE 10 MG/2 ML INJ IV ONE (10:09)
[2020-04-05] MEDS ORDERED: amLODIPine 5 MG TAB PO ONE (10:09)
[2020-04-05] MEDS ORDERED: LIDOCAINE (4%) 40 MG/ML TOPICAL SOLN 50 ML BOTTLE TP ONE (10:10)
--- NOTE | 2020-04-05 10:10 | Emergency Department Report ---
ED General Adult HPI - General Chief complaint: High BP Stated complaint: HIGH BLOOD PRESSURE PUI?: No Time Seen by Provider: 04/05/20 09:09 Source: patient, RN notes reviewed, old records reviewed Mode of arrival: Ambulatory Limitations: No Limitations - History of Present Illness Initial comments: The patient was evaluated in the emergency department for symptoms described in the history of present illness. He/she was evaluated in the context of the global COVID-19 pandemic, which necessitated consideration that the patient might be at risk for infection with the virus that causes COVID-19. Institutional protocols and algorithms that pertain to the evaluation of patients at risk for COVID-19 are in a state of rapid change based on information released by regulatory bodies including the CDC and federal and state organizations. These policies and algorithms were followed during the patient's care in the emergency department. Please note that these policies, procedures and recommendations changed on a rapid basis. Patient is a 75-year-old female. She has a history of hypertension, depression she reports that she ran out of her lisinopril, Norvasc, Remeron, and Prozac. She ran out of her medications. She presents to the ER today with a primary complaint of headache. The headache is frontal bitemporal and occipital. The headache has been constant for the past week. Headache is not sudden or thunder clap in nature. The headache is not maximal intensity at the onset of the headache. This headache is not the worst headache of her life. She reports having had a worse headache a few years ago. She denies loss of vision, temporal forehead pain, exposure to carbon monoxide, sick contacts, jaw cla udication. There is no sore throat, and no neck pain or neck stiffness. She endorses anxiety and tremors. She states that these tremors are new over the past week. She also endorses bilateral lower extremity swelling, which is new. This is new over the past week. She denies chest pain, new or different exertional shortness of breath, vomiting, diaphoresis, abdominal pain, urinary symptoms, focal extremity weakness/numbness. -: Gradual, days(s), week(s) Location: head, left, right, lower extremity Radiation: non-radiation Quality: aching Consistency: constant Improves with: none Worsens with: none - Related Data Previous Rx's Medication Instructions Recorded Last Taken Type Lisinopril [Zestril] 40 mg PO DAILY #30 tablet 05/10/18 03/29/20 Rx FLUoxetine HCL [Prozac] 20 mg PO DAILY #30 capsule 11/27/18 03/29/20 Rx Mirtazapine [Remeron 45mg TAB] 45 mg PO QHS #30 tab.rapdis 09/13/19 03/29/20 Rx amLODIPine 10 mg PO DAILY #30 tab 11/20/19 03/29/20 Rx Acetaminophen [Non-Aspirin Extra 500 mg PO Q6HR PRN #30 tablet 04/05/20 Unknown Rx Strength] Amlodipine Besylate [Norvasc] 5 mg PO QDAY #30 tablet 04/05/20 Unknown Rx Magnesium Oxide 400 mg PO QDAY #30 tablet 04/05/20 Unknown Rx Metoclopramide [Reglan] 10 mg PO QID PRN #30 tablet 04/05/20 Unknown Rx lisinopriL [Zestril TAB] 40 mg PO QDAY #30 tablet 04/05/20 Unknown Rx Allergies Allergy/AdvReac Type Severity Reaction Status Date / Time ibuprofen [From Motrin] Allergy Rash Verified 04/05/20 09:01 shrimp Allergy Unknown Verified 04/05/20 09:01 tetracycline Allergy Unknown Verified 04/05/20 09:01 ED Review of Systems ROS: Stated complaint: HIGH BLOOD PRESSURE Other details as noted in HPI Constitutional: denies: fever Eyes: denies: eye pain, eye discharge, vision change ENT: denies: epistaxis Respiratory: denies: cough Cardiovascular: edema. denies: chest pain Gastrointestinal: abdominal pain. denies: vomiting, hematemesis, melena, hematochezia Genitourinary: denies: dysuria Musculoskeletal: denies: back pain Neurological: headache. denies: weakness Psychiatric: anxiety ED Past Medical Hx - Past Medical History Hx Hypertension: Yes Hx GERD: Yes Hx Psychiatric Treatment: Yes (depression) - Surgical History Additional Surgical History: Hysterectomy - Social History Smoking Status: Current Some Day Smoker Substance Use Type: None - Medications Home Medications: Home Medications Medication Instructions Recorded Confirmed Last Taken Type Lisinopril [Zestril] 40 mg PO DAILY #30 tablet 05/10/18 04/05/20 03/29/20 Rx FLUoxetine HCL [Prozac] 20 mg PO DAILY #30 capsule 11/27/18 04/05/2021 Rx Mirtazapine [Remeron 45mg TAB] 45 mg PO QHS #30 tab.rapdis 09/13/19 04/05/20 03/29/20 Rx amLODIPine 10 mg PO DAILY #30 tab 11/20/19 04/05/20 03/29/20 Rx Acetaminophen [Non-Aspirin Extra 500 mg PO Q6HR PRN #30 tablet 04/05/20 Unknown Rx Strength] Amlodipine Besylate [Norvasc] 5 mg PO QDAY #30 tablet 04/05/20 Unknown Rx Magnesium Oxide 400 mg PO QDAY #30 tablet 04/05/20 Unknown Rx Metoclopramide [Reglan] 10 mg PO QID PRN #30 tablet 04/05/20 Unknown Rx lisinopriL [Zestril TAB] 40 mg PO QDAY #30 tablet 04/05/20 Unknown Rx ED Physical Exam - General Limitations: No Limitations General appearance: alert, in no apparent distress - Head Head exam: Present: atraumatic, normocephalic, other (There is no temporal tenderness) - Eye Eye exam: Present: normal appearance, PERRL, EOMI, other (Visual acuity intact to finger counting, color perception, reading at a close distance) - ENT ENT exam: Present: normal exam, normal orophraynx, mucous membranes moist, normal external ear exam, other (There is no mastoid tenderness) - Neck Neck exam: Present: normal inspection, full ROM. Absent: tenderness, meningismus - Respiratory Respiratory exam: Present: normal lung sounds bilaterally. Absent: respiratory distress, wheezes, rales, rhonchi, stridor, decreased breath sounds - Cardiovascular Cardiovascular Exam: Present: regular rate, normal rhythm, normal heart sounds. Absent: bradycardia, tachycardia, irregular rhythm, systolic murmur, diastolic murmur, rubs, gallop - GI/Abdominal GI/Abdominal exam: Present: soft. Absent: distended, tenderness, guarding, rebound, rigid, pulsatile mass - Extremities Exam Extremities exam: Present: normal inspection, full ROM, pedal edema (1+ edema in the bilateral lower extremities), other (2+ pulses noted in the bilateral upper and lower extremities. There is no palpable cord. negative Homans sign. Muscular compartments are soft. The pelvis is stable.). Absent: calf tenderness - Back Exam Back exam: Present: normal inspection, full ROM. Absent: tenderness, CVA tenderness (R), CVA tenderness (L), paraspinal tenderness, vertebral tenderness - Neurological Exam Neurological exam: Present: alert, oriented X3, CN II-XII intact, normal gait (Normal [id number]. No past-pointing. Negative pronator drift.), other (No facial droop. Tongue midline. Extraocular movements intact bilaterally. Facial sensation intact to light touch in V1, V2, V3 distribution bilaterally. 5 and a 5 strength in 4 extremities. Sensation intact to light touch in 4 extremities.). Absent: motor sensory deficit - Psychiatric Psychiatric exam: Present: anxious - Skin Skin exam: Present: warm, dry, intact, normal color. Absent: rash ED Course Vital Signs 04/05/20 04/05/20 04/05/20 09:02 10:05 10:15 Temperature 97.8 F Pulse Rate 142 H 94 H Respiratory 18 12 Rate Blood Pressure 131/88 139/90 Blood Pressure [Left] O2 Sat by Pulse 97 99 99 Oximetry 04/05/20 04/05/20 04/05/20 10:31 10:45 11:00 Temperature Pulse Rate 96 H 84 90 Respiratory 17 14 19 Rate Blood Pressure 139/90 139/90 133/88 Blood Pressure [Left] O2 Sat by Pulse 99 99 99 Oximetry 04/05/20 04/05/20 04/05/20 11:06 11:11 11:15 Temperature Pulse Rate 96 H 86 Respiratory 18 17 Rate Blood Pressure 133/88 133/88 Blood Pressure [Left] O2 Sat by Pulse 99 Oximetry 04/05/20 04/05/20 04/05/20 11:31 11:45 12:01 Temperature Pulse Rate 100 H 99 H 93 H Respiratory 17 16 18 Rate Blood Pressure 133/88 133/88 134/90 Blood Pressure [Left] O2 Sat by Pulse 100 99 100 Oximetry 04/05/20 13:09 Temperature Pulse Rate 95 H Respiratory 16 Rate Blood Pressure Blood Pressure 132/87 [Left] O2 Sat by Pulse 100 Oximetry - Reevaluation(s) Reevaluation #1: 04/05/20 11:57 At the time of final reassessment, patient was sleeping comfortably, in stretcher, in no acute distress, endorsed significant improvement in her symptoms, and heart rate is 88 bpm. ED Medical Decision Making - Lab Data Result diagrams: 04/05/20 09:39 04/05/20 09:39 Vital Signs 04/05/20 04/05/20 04/05/20 09:02 10:05 10:15 Temperature 97.8 F Pulse Rate 142 H 94 H Respiratory 18 12 Rate Blood Pressure 131/88 139/90 O2 Sat by Pulse 97 99 99 Oximetry 04/05/20 04/05/20 04/05/20 10:31 10:45 11:00 Temperature Pulse Rate 96 H 84 90 Respiratory 17 14 19 Rate Blood Pressure 139/90 139/90 133/88 O2 Sat by Pulse 99 99 99 Oximetry 04/05/20 04/05/20 11:06 11:11 Temperature Pulse Rate 96 H Respiratory 18 Rate Blood Pressure 133/88 O2 Sat by Pulse Oximetry Lab Results 04/05/20 04/05/20 04/05/20 Range/Units 09:39 09:39 09:39 WBC 2.8 L (4.5-11.0) K/mm3 RBC 3.58 L (3.65-5.03) M/mm3 Hgb 11.5 (10.1-14.3) gm/dl Hct 35.3 (30.3-42.9) % MCV 99 H (79-97) fl MCH 32 (28-32) pg MCHC 33 (30-34) % RDW 15.7 H (13.2-15.2) % Plt Count 189 (140-440) K/mm3 Lymph % (Auto) 32.5 (13.4-35.0) % Turner % (Auto) 10.2 H (0.0-7.3) % Eos % (Auto) 0.3 (0.0-4.3) % Baso % (Auto) 1.9 H (0.0-1.8) % Lymph # (Auto) 0.9 L (1.2-5.4) K/mm3 Turner # (Auto) 0.3 (0.0-0.8) K/mm3 Eos # (Auto) 0.0 (0.0-0.4) K/mm3 Baso # (Auto) 0.1 (0.0-0.1) K/mm3 Seg Neutrophils % 55.1 (40.0-70.0) % Seg Neutrophils # 1.5 L (1.8-7.7) K/mm3 Sodium 140 (137-145) mmol/L Potassium 3.9 (3.6-5.0) mmol/L Chloride 103.4 (98-107) mmol/L Carbon Dioxide 21 L (22-30) mmol/L Anion Gap 20 mmol/L BUN 9 (7-17) mg/dL Creatinine 0.6 (0.6-1.2) mg/dL Estimated GFR > 60 ml/min BUN/Creatinine Ratio 15 % Glucose 139 H (65-100) mg/dL Calcium 8.2 L (8.4-10.2) mg/dL Magnesium 1.60 L (1.7-2.3) mg/dL Total Bilirubin 0.20 (0.1-1.2) mg/dL AST 53 H (5-40) units/L ALT 30 (7-56) units/L Alkaline Phosphatase 138 H (35-129) units/L Total Creatine Kinase 27 L (30-135) units/L Total Protein 6.1 L (6.3-8.2) g/dL Albumin 3.3 L (3.9-5) g/dL Albumin/Globulin Ratio 1.2 % - EKG Data -: EKG Interpreted by Nv EKG shows normal: sinus rhythm Rate: tachycardia - EKG Data 04/05/20 11:27 EKG today does show sinus rhythm, tachycardia, 114 bpm. Normal axis, QTC 450 ms. There is motion artifact. This EKG is abnormal. This EKG is not a STEMI. - Radiology Data Radiology results: pending, report reviewed, image reviewed interpreted by me: CT HEAD WITHOUT CONTRAST INDICATION / CLINICAL INFORMATION: severe headache. TECHNIQUE: Axial imaging performed from the skull apex through the skull base without the use of contrast. Sagittal and coronal reformatted images. All CT scans at this location are performed using CT dose reduction for ALARA by means of automated exposure control. COMPARISON: 03/26/2016 FINDINGS: CEREBRAL PARENCHYMA: No acute parenchymal abnormality is detected. Mild nonspecific hypoattenuation in the white matter consistent with chronic microangiopathy is stable. No chronic infarct. HEMORRHAGE: None. EXTRA-AXIAL SPACES: Normal in size and morphology for the patient's age. VENTRICULAR SYSTEM: Normal in size and morphology for the patient's age. MIDLINE SHIFT OR HERNIATION: None. CEREBELLUM / BRAINSTEM: No significant abnormality. CALVARIUM: No significant abnormality. ORBITS: Normal as visualized. PARANASAL SINUSES / MASTOID AIR CELLS: Normal as visualized. SOFT TISSUES of HEAD: No significant abnormality. ADDITIONAL FINDINGS: None. IMPRESSION: No acute intracranial abnormality. Mild chronic white matter changes which are stable since 03/26/2016. Signer Name: Minor Orozco Jr, MD Signed: 04/05/2020 8:58 AM Workstation Name: [id number] - Medical Decision Making Differential diagnosis, including but not limited to: Withdrawal headache, migraine headache, tension headache, cluster headache, dependent edema, electrolyte derangement, renal insufficiency, hepatic insufficiency Assessment and plan: 75-year-old female, presenting with headache that is not sudden or thunderclap in nature, not maximal in intensity, not the worst headache of her life, GCS 15, NIH score of 0, no examination or historical features to suggest carbon monoxide poisoning, temporal arteritis, glaucoma, venous sinus thrombosis, intracranial hemorrhage, subarachnoid hemorrhage, headache likely related to withdrawal from Remeron and/or Prozac, there may be an anxiety component here as well, with dependent edema. Laboratory studies fairly unremarkable, elevation and liver function test appears to be chronic, hypomagnesemia is reviewed and appreciated, and will be addressed. We will be very happy to refill the patient's Norvasc, and lisinopril. Patient educated that we are not able to refill Prozac, Remeron, and she will need to follow-up with the primary care doctor or neurologist for this or psychiatrist for these medications. She will also be discharged with Reglan, for as needed headache, as well as magnesium supplementation. Dependent edema at this time can be managed expectantly, with compression stockings. Tachycardia resolved, patient resting comfortably in stretcher at this time, and in no acute distress. Medically suitable for discharge at this point in time. Critical care attestation.: If time is entered above; I have spent that time in minutes in the direct care of this critically ill patient, excluding procedure time. ED Disposition Clinical Impression: Hypomagnesemia, Dependent edema, Medication refill Headache Qualifiers: Headache type: unspecified Headache chronicity pattern: acute headache Intractability: not intractable Qualified Code(s): R51.9 - Headache, unspecified Disposition: -01 TO HOME OR SELFCARE Is pt being admited?: No Does the pt Need Aspirin: No Condition: Stable Instructions: General Headache Without Cause, Hypomagnesemia, Peripheral Edema Additional Instructions: Take the blood pressure medication as directed. Take the Tylenol medication, regular medication as needed for headache, and nausea/headache. Take the magnesium supplementation as directed. Patient will need to follow-up with her primary care doctor, neurologist, or psychiatrist to have refills on Remeron, and Prozac. We do recommend follow-up with a primary care doctor within the next month. Dr Yg Ferguson is a [facility] primary care doctor. [facility] is a local medical clinic. Recommend follow-up with a neurologist or psychiatrist within the next [address] Larson is a local neurologist [facility] is a local [facility] health resource. Please return to the emergency room right away with new pain, worsening pain, migration of pain, projectile vomiting, change in mental status, confusion, inability to tolerate liquid feeds, new, worsened or different symptoms not present on the initial emergency room evaluation. Patient may purchase [id number] compression stockings or socks for lower extremity swelling and edema. Prescriptions: Magnesium Oxide 400 mg PO QDAY #30 tablet Acetaminophen [Non-Aspirin Extra Strength] 500 mg PO Q6HR PRN #30 tablet PRN Reason: Pain , Severe (7-10) Amlodipine Besylate [Norvasc] 5 mg PO QDAY #30 tablet Metoclopramide [Reglan] 10 mg PO QID PRN #30 tablet PRN Reason: Headache lisinopriL [Zestril TAB] 40 mg PO QDAY #30 tablet Referrals: TAVIA FERGUSON MD [Staff Physician] - 3-5 Days LYNDSEY LARSON MD [Staff Physician] - 3-5 Days [facility] [Provider Group] - 3-5 Days [facility] [Outside] - 3-5 Days
[2020-04-05 10:23] LABS: Alanine Aminotransferase 30 units/L (7-56); Albumin 3.3 g/dL (3.9-5); Blood Urea Nitrogen 9 mg/dL (7-17); Calcium 8.2 mg/dL (8.4-10.2); Hemolysis Index 5
[2020-04-05 10:27] LABS: BUN/Creatinine Ratio 15
[2020-04-05] MEDS ORDERED: MAGNESIUM SULFATE 2 GM/50 ML BAG IV ONE (11:19)
[2020-04-05 13:10] VITALS: BP 132/87
== END 2020-04-05 13:12 | disposition home or self-care (01) ==
LOC: ED 08:53
DX: E83.42 Hypomagnesemia (principal); R60.9 Edema, unspecified; R51.9 Headache, unspecified; I10 Essential (primary) hypertension; K21.9 Gastro-esophageal reflux disease without esophagitis; F32.9 Major depressive disorder, single episode, unspecified; F17.200 Nicotine dependence, unspecified, uncomplicated; Z79.899 Other long term (current) drug therapy; Z91.013 Allergy to seafood; Z88.6 Allergy status to analgesic agent; Z88.8 Allergy status to other drugs, medicaments and biological substances; Z90.710 Acquired absence of both cervix and uterus; Z76.0 Encounter for issue of repeat prescription
CPT/HCPCS: 36415; 70450; 71046; 80053; 82550; 83735; 85025; 93005; 96365; 96375; 99284; J1200; J2765; J3475

== ENCOUNTER 2020-05-17 12:58 | Emergency (ER) | payer MEDICARE ==
--- NOTE | 2020-05-17 13:52 | Emergency Department Report ---
ED Extremity Problem HPI - General Stated complaint: BP MED REFILL/SWELLING IN ANKLES Time Seen by Provider: 05/17/20 13:12 - History of Present Illness Initial comments: 75-year-old female, history of hypertension, presents to ED with bilateral lower extremity swelling. Triage note states that swelling began 2 weeks ago, however, patient reports this edema has been present for approximately 2 months now. Patient denies any chest pain or shortness of breath. Patient is also requesting refill on her blood pressure medications. States she ran out of her lisinopril and amlodipine. Patient is not on any diuretics. MD Complaint: extremity swelling -: month(s) (2) Location: bilateral lower extremity -: No fever, No associated dyspnea, No associated chest pain Consistency: constant Improves with: nothing Worsens with: nothing Associated Symptoms: denies: chest pain, shortness of breath, fever - Related Data Previous Rx's Medication Instructions Recorded Last Taken Type Lisinopril [Zestril] 40 mg PO DAILY #30 tablet 05/10/18 03/29/20 Rx FLUoxetine HCL [Prozac] 20 mg PO DAILY #30 capsule 11/27/18 03/29/20 Rx Mirtazapine [Remeron 45mg TAB] 45 mg PO QHS #30 tab.rapdis 09/13/19 03/29/20 Rx Acetaminophen [Non-Aspirin Extra 500 mg PO Q6HR PRN #30 tablet 04/05/20 Unknown Rx Strength] Amlodipine Besylate [Norvasc] 5 mg PO QDAY #30 tablet 04/05/20 Unknown Rx Magnesium Oxide 400 mg PO QDAY #30 tablet 04/05/20 Unknown Rx Metoclopramide [Reglan] 10 mg PO QID PRN #30 tablet 04/05/20 Unknown Rx Furosemide [Lasix] 20 mg PO QDAY #4 tablet 05/17/20 Unknown Rx amLODIPine 10 mg PO DAILY #30 tab 05/17/20 Unknown Rx lisinopriL [Zestril TAB] 40 mg PO QDAY #30 tablet 05/17/20 Unknown Rx Allergies Allergy/AdvReac Type Severity Reaction Status Date / Time ibuprofen [From Motrin] Allergy Rash Verified 05/17/20 13:50 shrimp Allergy Unknown Verified 05/17/20 13:50 tetracycline Allergy Unknown Verified 05/17/20 13:50 ED Review of Systems ROS: Stated complaint: BP MED REFILL/SWELLING IN ANKLES Other details as noted in HPI Comment: All other systems reviewed and negative Constitutional: denies: chills, fever Respiratory: denies: shortness of breath Cardiovascular: edema. denies: chest pain ED Past Medical Hx - Past Medical History Hx Hypertension: Yes Hx GERD: Yes Hx Psychiatric Treatment: Yes (depression) - Surgical History Additional Surgical History: Hysterectomy - Social History Smoking Status: Current Some Day Smoker Substance Use Type: None - Medications Home Medications: Home Medications Medication Instructions Recorded Confirmed Last Taken Type Lisinopril [Zestril] 40 mg PO DAILY #30 tablet 05/10/18 04/05/20 03/29/20 Rx FLUoxetine HCL [Prozac] 20 mg PO DAILY #30 capsule 11/27/18 04/05/20 03/29/20 Rx Mirtazapine [Remeron 45mg TAB] 45 mg PO QHS #30 tab.rapdis 09/13/19 04/05/20 03/29/20 Rx Acetaminophen [Non-Aspirin Extra 500 mg PO Q6HR PRN #30 tablet 04/05/20 Unknown Rx Strength] Amlodipine Besylate [Norvasc] 5 mg PO QDAY #30 tablet 04/05/20 Unknown Rx Magnesium Oxide 400 mg PO QDAY #30 tablet 04/05/20 Unknown Rx Metoclopramide [Reglan] 10 mg PO QID PRN #30 tablet 04/05/20 Unknown Rx Furosemide [Lasix] 20 mg PO QDAY #4 tablet 05/17/20 Unknown Rx amLODIPine 10 mg PO DAILY #30 tab 05/17/20 Unknown Rx lisinopriL [Zestril TAB] 40 mg PO QDAY #30 tablet 05/17/20 Unknown Rx ED Physical Exam - General General appearance: alert, in no apparent distress - Head Head exam: Present: atraumatic, normocephalic - Eye Eye exam: Present: normal appearance - ENT ENT exam: Present: mucous membranes moist - Neck Neck exam: Present: normal inspection - Respiratory Respiratory exam: Present: normal lung sounds bilaterally. Absent: respiratory distress - Cardiovascular Cardiovascular Exam: Present: regular rate, normal rhythm - GI/Abdominal GI/Abdominal exam: Present: soft. Absent: distended, tenderness - Extremities Exam Extremities exam: Present: other (2+ pitting edema ) - Neurological Exam Neurological exam: Present: alert, oriented X3 - Psychiatric Psychiatric exam: Present: normal affect, normal mood - Skin Skin exam: Present: warm, dry, intact, normal color ED Course Vital Signs 05/17/20 13:14 Temperature 97.3 F L Pulse Rate 81 Respiratory 8 L Rate Blood Pressure 127/92 O2 Sat by Pulse 99 Oximetry ED Medical Decision Making - Lab Data Result diagrams: 05/17/20 14:02 05/17/20 14:02 - Medical Decision Making 75-year-old female presents to ED for medication refill. She also reports some bilateral lower extremity edema that has been present for the last 3 months. O2 sats are normal. Patient is in no respiratory distress. Patient denies any chest pain. BNP is elevated. I will refill patient's amlodipine and lisinopril. Will also give low-dose of Lasix for 4 days to improve her edema. Renal function is normal. Outpatient follow-up advised, return precautions given. - Differential Diagnosis Dependent edema, CHF, renal failure Critical care attestation.: If time is entered above; I have spent that time in minutes in the direct care of this critically ill patient, excluding procedure time. ED Disposition Clinical Impression: Dependent edema, Medication refill Disposition: [id number]-01 TO HOME OR SELFCARE Is pt being admited?: No Condition: Stable Instructions: Edema, [id number] Prescriptions: amLODIPine 10 mg PO DAILY #30 tab Furosemide [Lasix] 20 mg PO QDAY #4 tablet lisinopriL [Zestril TAB] 40 mg PO QDAY #30 tablet Referrals: [facility] [Provider Group] - 3-5 Days JACK KIRKLAND MD [Staff Physician] - 3-[address] [facility] [Outside] - 3-5 Days Time of Disposition: 15:10
[2020-05-17 14:36] LABS: Alanine Aminotransferase 32 units/L (7-56); Albumin 2.4 g/dL (3.9-5); Bilirubin,Direct 0.3 mg/dL (0-0.2); Blood Urea Nitrogen 6 mg/dL (7-17); Calcium 7.6 mg/dL (8.4-10.2); Hemolysis Index 6
[2020-05-17 14:38] LABS: Hematocrit 27.4 % (30.3-42.9); Hemoglobin 9.3 gm/dl (10.1-14.3); Red Blood Count 2.92 M/mm3 (3.65-5.03)
[2020-05-17 14:39] LABS: Basophils % (Auto) 0.6 % (0.0-1.8); Eosinophils % (Auto) 0.2 % (0.0-4.3); Lymphocytes % (Auto) 15.7 % (13.4-35.0); Mean Corpuscular HGB Conc 34 % (30-34); Mean Corpuscular Volume 94 fl (79-97); Monocytes % (Auto) 12.7 % (0.0-7.3); Platelet Count 167 K/mm3 (140-440); Red Cell Distribution Width 14.6 % (13.2-15.2)
[2020-05-17 14:40] LABS: BUN/Creatinine Ratio 9; Lymphocytes # (Auto) 0.6 K/mm3 (1.2-5.4); Monocytes # (Auto) 0.5 K/mm3 (0.0-0.8)
[2020-05-17 15:43] VITALS: BP 137/85
== END 2020-05-17 20:05 | disposition home or self-care (01) ==
LOC: ED 12:58
DX: R60.9 Edema, unspecified (principal); I10 Essential (primary) hypertension; K21.9 Gastro-esophageal reflux disease without esophagitis; F32.9 Major depressive disorder, single episode, unspecified; F17.200 Nicotine dependence, unspecified, uncomplicated; Z90.710 Acquired absence of both cervix and uterus; Z79.899 Other long term (current) drug therapy; Z88.6 Allergy status to analgesic agent; Z91.013 Allergy to seafood; Z76.0 Encounter for issue of repeat prescription
CPT/HCPCS: 36415; 80048; 80076; 83880; 85025

== ENCOUNTER 2020-06-03 08:44 | Emergency (ER) | payer MEDICARE ==
--- NOTE | 2020-06-03 10:47 | Emergency Department Report ---
ED Extremity Problem HPI - General Chief complaint: Fall Stated complaint: WEAKNESS Time Seen by Provider: 06/03/20 10:27 Source: patient Mode of arrival: Ambulatory Limitations: No Limitations - History of Present Illness Initial comments: 75-year-old female with history of hypertension presents to ED with complaint of multiple falls over the last week. Patient states 2 weeks ago she began developing swelling in bilateral lower legs and feet. Patient states she has never experienced this before. Patient states because of the swelling, her legs feel very heavy. She reports that the heaviness along with the pain secondary to the swelling is causing difficulty with walking and causing her to fall. Patient does not use a cane or walker for ambulation, but states if she had one she believes it would be easier for her to ambulate. Patient denies any dizziness or lightheadedness a source of her falls. Patient denies any chest pain or shortness of breath. Patient states she has fallen proximately 4 times over the last week. Patient states she did hit her head once. She reports a slight headache. She denies any nausea or vomiting. MD Complaint: extremity swelling -: month(s) (2) Location: bilateral lower extremity Quality: aching Consistency: intermittent Improves with: immobilization Worsens with: weight bearing Associated Symptoms: denies: chest pain, shortness of breath, fever - Related Data Previous Rx's Medication Instructions Recorded Last Taken Type Lisinopril [Zestril] 40 mg PO DAILY #30 tablet 05/10/18 03/29/20 Rx FLUoxetine HCL [Prozac] 20 mg PO DAILY #30 capsule 11/27/18 03/29/20 Rx Mirtazapine [Remeron 45mg TAB] 45 mg PO QHS #30 tab.rapdis 09/13/19 03/29/20 Rx Acetaminophen [Non-Aspirin Extra 500 mg PO Q6HR PRN #30 tablet 04/05/20 Unknown Rx Strength] Amlodipine Besylate [Norvasc] 5 mg PO QDAY #30 tablet 04/05/20 Unknown Rx Magnesium Oxide 400 mg PO QDAY #30 tablet 04/05/20 Unknown Rx Metoclopramide [Reglan] 10 mg PO QID PRN #30 tablet 04/05/20 Unknown Rx amLODIPine 10 mg PO DAILY #30 tab 05/17/20 Unknown Rx lisinopriL [Zestril TAB] 40 mg PO QDAY #30 tablet 05/17/20 Unknown Rx Furosemide [Lasix TAB] 20 mg PO QDAY #30 tablet 06/03/20 Unknown Rx Allergies Allergy/AdvReac Type Severity Reaction Status Date / Time ibuprofen [From Motrin] Allergy Rash Verified 05/17/20 13:50 shrimp Allergy Unknown Verified 05/17/20 13:50 tetracycline Allergy Unknown Verified 05/17/20 13:50 ED Review of Systems ROS: Stated complaint: WEAKNESS Other details as noted in HPI Comment: All other systems reviewed and negative Constitutional: denies: chills, fever Respiratory: denies: shortness of breath Cardiovascular: denies: chest pain Gastrointestinal: denies: nausea, vomiting Neurological: headache, weakness. denies: numbness ED Past Medical Hx - Past Medical History Previous Medical History?: Yes Hx Hypertension: Yes Hx CVA: Yes Hx GERD: Yes Hx Psychiatric Treatment: Yes (depression) - Surgical History Past Surgical History?: Yes Additional Surgical History: Hysterectomy - Social History Smoking Status: Never Smoker Substance Use Type: None - Medications Home Medications: Home Medications Medication Instructions Recorded Confirmed Last Taken Type Lisinopril [Zestril] 40 mg PO DAILY #30 tablet 05/10/18 04/05/20 03/29/20 Rx FLUoxetine HCL [Prozac] 20 mg PO DAILY #30 capsule 11/27/18 04/05/20 03/29/20 Rx Mirtazapine [Remeron 45mg TAB] 45 mg PO QHS #30 tab.rapdis 09/13/19 04/05/20 03/29/20 Rx Acetaminophen [Non-Aspirin Extra 500 mg PO Q6HR PRN #30 tablet 04/05/20 Unknown Rx Strength] Amlodipine Besylate [Norvasc] 5 mg PO QDAY #30 tablet 04/05/20 Unknown Rx Magnesium Oxide 400 mg PO QDAY #30 tablet 04/05/20 Unknown Rx Metoclopramide [Reglan] 10 mg PO QID PRN #30 tablet 04/05/20 Unknown Rx amLODIPine 10 mg PO DAILY #30 tab 05/17/20 Unknown Rx lisinopriL [Zestril TAB] 40 mg PO QDAY #30 tablet 05/17/20 Unknown Rx Furosemide [Lasix TAB] 20 mg PO QDAY #30 tablet 06/03/20 Unknown Rx ED Physical Exam - General Limitations: No Limitations General appearance: alert, in no apparent distress - Head Head exam: Present: atraumatic, normocephalic - Eye Eye exam: Present: normal appearance, EOMI - ENT ENT exam: Present: mucous membranes moist - Neck Neck exam: Present: normal inspection - Respiratory Respiratory exam: Present: normal lung sounds bilaterally. Absent: respiratory distress - Cardiovascular Cardiovascular Exam: Present: normal rhythm, tachycardia - GI/Abdominal GI/Abdominal exam: Present: soft. Absent: distended, tenderness - Extremities Exam Extremities exam: Present: other (2+ pitting edema to bilateral lower legs and feet) - Neurological Exam Neurological exam: Present: alert, oriented X3, motor sensory deficit (weakness to bilateral lower legs; able to lift straight legs approx 3 inches off the stretcher) - Psychiatric Psychiatric exam: Present: normal affect, normal mood - Skin Skin exam: Present: warm, dry, intact, normal color ED Course Vital Signs 06/03/20 06/03/20 06/03/20 08:49 10:30 11:00 Temperature 98.1 F Pulse Rate 103 H 81 85 Respiratory 16 15 13 Rate Blood Pressure 119/97 123/90 Blood Pressure 117/88 [Left] O2 Sat by Pulse 96 97 91 Oximetry 06/03/20 06/03/20 06/03/20 11:30 12:00 12:30 Temperature Pulse Rate 69 67 68 Respiratory 15 16 11 L Rate Blood Pressure 123/90 129/84 126/87 Blood Pressure [Left] O2 Sat by Pulse 100 100 99 Oximetry 06/03/20 14:30 Temperature Pulse Rate 86 Respiratory 32 H Rate Blood Pressure 123/83 Blood Pressure [Left] O2 Sat by Pulse 100 Oximetry ED Medical Decision Making - Lab Data Result diagrams: 06/03/20 10:42 06/03/20 10:42 - Radiology Data Radiology results: report reviewed, image reviewed - Medical Decision Making Patient seen by me earlier in the month for her lower extremity edema. Patient was given a prescription for a short course of Lasix, which she states she took. At that time, I advised patient to obtain outpatient follow-up. Patient tells me that she does not have a PCP even though she does have health insurance. Patient reports she has no transportation, no way of getting to doctors appointments. I asked patient how she eats and goes to the grocery store. Patient responds she does not. Patient states sometimes her niece, who lives [place] the [place] [facility], will come and visit and bring her food when she visits, but that is not regularly. Patient states she sometimes will go next door to her neighbor to get food. I asked patient if she ate breakfast this morning she states no. I asked patient if she ate anything on yesterday, she states she ate a fish sandwich that her niece brought. Patient states she did not have anything in her refrigerator or any staple foods in her cupboards. Patient does not have any acute disease at this time. Work-up is unremarkable except for her chronic lower extremity edema. Patient given a walker here in the ED so that she may be able to ambulate better at home. However, I believe that patient needs case management for assistance with transportation to doctor's appointments, grocery store, etc. Will give another prescription for Lasix and again recommend outpatient follow-up. - Differential Diagnosis DVT, CHF, peripheral edema Critical care attestation.: If time is entered above; I have spent that time in minutes in the direct care of this critically ill patient, excluding procedure time. ED Disposition Clinical Impression: Lower extremity edema, Fall, Head injury, acute Disposition: DC-01 TO HOME OR SELFCARE Is pt being admited?: No Condition: Stable Instructions: Peripheral Edema Prescriptions: Furosemide [Lasix TAB] 20 mg PO QDAY #30 tablet Referrals: PRIMARY CARE, [Primary Care Provider] - 3-5 Days
[2020-06-03 10:51] LABS: Basophils # (Auto) 0.1 K/mm3 (0.0-0.1); Basophils % (Auto) 1.3 % (0.0-1.8); Eosinophils % (Auto) 0.8 % (0.0-4.3); Hemoglobin 10.7 gm/dl (10.1-14.3); Lymphocytes # (Auto) 1.2 K/mm3 (1.2-5.4); Monocytes # (Auto) 0.4 K/mm3 (0.0-0.8); Monocytes % (Auto) 9.4 % (0.0-7.3)
[2020-06-03 10:54] LABS: Hematocrit 32.4 % (30.3-42.9); Mean Corpuscular HGB Conc 33 % (30-34); Mean Corpuscular Volume 93 fl (79-97); Platelet Count 129 K/mm3 (140-440); Red Blood Count 3.48 M/mm3 (3.65-5.03); Red Cell Distribution Width 14.3 % (13.2-15.2)
[2020-06-03 11:05] LABS: Alanine Aminotransferase 16 units/L (7-56); Albumin 2.5 g/dL (3.9-5); BUN/Creatinine Ratio 17; Bilirubin,Direct < 0.2 mg/dL (0-0.2); Blood Urea Nitrogen 12 mg/dL (7-17); Calcium 8.3 mg/dL (8.4-10.2); Hemolysis Index 6
--- NOTE | 2020-06-03 12:37 | Vascular Lab Report ---
DUPLEX DOPPLER LOWER EXTREMITY VEINS, BILATERAL INDICATION: swelling. TECHNIQUE: Duplex doppler imaging was performed through the veins of both lower extremities using venous camryn raimundo and other maneuvers. COMPARISON: None available. FINDINGS: Right Common Femoral vein: Negative. Right Superficial Femoral vein: Negative. Right Popliteal vein: Negative. Right Calf veins: Negative. Left Common Femoral vein: Negative. Left Superficial Femoral vein: Negative. Left Popliteal vein: Negative. Left Calf veins: Negative. Additional findings: None. IMPRESSION: 1. No sonographic evidence for DVT in either lower extremity. Signer Name: Juani Faith MD Signed: 06/03/2020 12:33 PM Workstation Name: [id number]
--- NOTE | 2020-06-03 12:59 | Cat Scan Report ---
CT cervical spine wo con INDICATION / CLINICAL INFORMATION: fall. TECHNIQUE: Axial CT imaging of the cervical spine was obtained without contrast. Coronal and sagittal reformatte d imaging obtained and reviewed. All CT scans at this location are performed using CT dose reduction for ALARA by means of automated exposure control. COMPARISON: None available. FINDINGS: I do not see evidence of cervical spine fracture or traumatic malalignment. However there is severe spondylitic change throughout the cervical spine primarily C3-C7. There is di ffuse bulky anterior osteophyte formation throughout the spine. There is mild multilevel degenerative disc disease as well. Incidental note is made of diffusely enlarged thyroid gland without obvious discrete mass consistent with goiter. Visualized lung apices show mild emphysematous change but no acute pulmonary disease. IMPRESSION: 1. No evidence for cervical spine fracture or traumatic malalignment. 2. Severe diffuse spondylytic change and mild multilevel degenerative disc disease throughout the nicola ority of the cervical spine. 3. Incidental finding of mild/moderate goiter. 4. Emphysematous changes noted in both lung apices. Signer Name: Juani Faith MD Signed: 06/03/2020 12:55 PM Workstation Name: [id number]
[2020-06-03] MEDS ORDERED: traMADol 50 MG TAB PO ONE (13:01)
--- NOTE | 2020-06-03 13:23 | Cat Scan Report ---
CT head/brain Visualized paranasal sinuses and mastoid air cells are well aerated and clear. No calvarial fracture or soft tissue abnormality is appreciated. Con INDICATION / CLINICAL INFORMATION: fall. TECHNIQUE: Axial CT imaging of the brain was obtained without contrast. Coronal and sagittal reformatted imaging obtained and reviewed. All CT scans at this location are performed using CT dose reduction for ALAR A by means of automated exposure control. COMPARISON: Prior head CT 04/05/2020 FINDINGS: No intracranial hemorrhage, mass, or midline shift is noted. No extra-axial fluid collection or sugge stion of acute territorial infarction. Ventricular system and basilar cisterns are unremarkable. Ther e is prominent periventricular hypoattenuation of white matter consistent with microvascular angiopat hy. This is not appreciably changed from prior exams. IMPRESSION: 1. Chronic age-related changes. No evidence for acute intracranial abnormality. Signer Name: Juani Faith MD Signed: 06/03/2020 1:19 PM Workstation Name: [id number]
[2020-06-03 13:41] LABS: Bacteria,Urine 1+ /HPF (Negative); Bilirubin,Urine NEG (Negative); Blood,Urine NEG (Negative); Color,Urine Yellow (Yellow); Hyaline Casts,Urine 4 /LPF; Mucus,Urine FEW /HPF; Urobilinogen,Urine < 2.0 mg/dL (<2.0)
[2020-06-04] MEDS ORDERED: ACETAMINOPHEN 325 MG TAB PO PRN (10:12)
[2020-06-04] MEDS ORDERED: MAGNESIUM HYDROXIDE (MOM) ORAL LIQD UDC PO PRN (10:12)
[2020-06-04] MEDS ORDERED: ALUM-MAG HYDROXIDE-SIMETHICONE 200-200-20MG/5ML ORAL LIQD 30 ML PO PRN (10:12)
[2020-06-05] MEDS: FUROSEMIDE 20 MG TAB PO SCH ×2 (03:53→10:53)
[2020-06-05] MEDS ORDERED: FUROSEMIDE 20 MG TAB PO SCH (10:00)
[2020-06-05] MEDS: amLODIPine 10 MG TAB PO SCH (11:13)
[2020-06-05] MEDS: LISINOPRIL 40 MG TAB PO SCH (11:13)
[2020-06-06] MEDS: LISINOPRIL 40 MG TAB PO SCH (11:25)
[2020-06-06] MEDS: amLODIPine 10 MG TAB PO SCH (11:25)
[2020-06-06] MEDS: FUROSEMIDE 20 MG TAB PO SCH (11:25)
[2020-06-07] MEDS: FUROSEMIDE 20 MG TAB PO SCH (12:59)
[2020-06-07] MEDS: amLODIPine 10 MG TAB PO SCH ×2 (13:00→13:12)
[2020-06-07] MEDS: LISINOPRIL 40 MG TAB PO SCH (13:11)
[2020-06-08] MEDS: FUROSEMIDE 20 MG TAB PO SCH ×2 (11:11→14:26)
[2020-06-08] MEDS: LISINOPRIL 40 MG TAB PO SCH ×2 (11:11→14:27)
[2020-06-08] MEDS: amLODIPine 10 MG TAB PO SCH ×2 (11:11→14:25)
[2020-06-08 14:26] VITALS: BP 116/78
== END 2020-06-08 15:48 | disposition home or self-care (01) ==
LOC: ED 08:44
DX: S09.90XA Unspecified injury of head, initial encounter (principal); R60.0 Localized edema; K21.9 Gastro-esophageal reflux disease without esophagitis; I10 Essential (primary) hypertension; F32.9 Major depressive disorder, single episode, unspecified; Z88.6 Allergy status to analgesic agent; Z88.8 Allergy status to other drugs, medicaments and biological substances; Z79.899 Other long term (current) drug therapy; Z91.013 Allergy to seafood; Z86.73 Personal history of transient ischemic attack (TIA), and cerebral infarction without residual deficits; Z90.710 Acquired absence of both cervix and uterus; W18.30XA Fall on same level, unspecified, initial encounter; Y93.89 Activity, other specified; Y92.89 Other specified places as the place of occurrence of the external cause; Y99.8 Other external cause status
CPT/HCPCS: 36415; 70450; 72125; 80048; 80076; 81001; 83880; 85025; 93970